=== PATIENT | male | born 1960 | race Caucasian/White ===

== ENCOUNTER 2018-04-26 07:05 | Inpatient (IN) | payer OTHER, SELFPAY ==
[2018-04-26] VITALS (22 sets, daily range): BP systolic 92–134; BP diastolic 64–94; PULSE 101–150; RESP 16–38; TEMP 36.6–39.7; O2SAT 91–99; BMI 25.1
--- NOTE | 2018-04-26 07:23 | CT_ITS ---
STUDY: CT ABDOMEN AND PELVIS WITH CONTRAST REASON FOR EXAM: Male, 58 years old. Pain, vomiting RADIATION DOSAGE (If Supplied By Facility): CTDIvol = ( 14.38 ) mGy, DLP = ( 1737.76 ) mGycm TECHNIQUE: Transaxial images were obtained from the dome of the diaphragm to the symphysis pubis without oral contrast. 100ML ml of Isovue 370 contrast was administered. Sagittal and coronal images were reconstructed. Individualized dose optimization techniques were used for this CT. COMPARISON: None. FINDINGS: The visualized lung bases are unremarkable. The visualized portions of the heart are within normal limits. Normal liver. Normal gallbladder and extrahepatic biliary system. There are curvilinear low attenuated peripheral bands within the spleen. Splenic injury cannot be excluded. No subcapsular or perisplenic collection. Normal pancreas. Normal bilateral adrenal glands. Normal right kidney. Subcentimeter probable cyst in the left kidney. Normal visualized stomach. Normal small intestine. Mild fecal retention of the colon. Mild colonic diverticulosis. There is mild mesenteric thickening adjacent to the mid ascending colon. The appendix is not visualized. Normal abdominal aorta. Duplicated inferior vena cava. Normal retroperitoneum. Normal urinary bladder. Normal abdominal wall. Degenerative vertebral changes. CT/Abdomen/Pelvis WITH Contrast IMPRESSION: Curvilinear bands of low attenuation within the spleen along the periphery. Splenic injury cannot be excluded. No subcapsular collection. Nonspecific mesenteric thickening adjacent to the mid ascending colon. Duplicated IVC. Electronically Signed: Hernando Jarvis DO at 9:56 EST Tel [phone], Service support ,
--- NOTE | 2018-04-26 07:23 | RAD_ITS ---
STUDY: X-RAY CHEST REASON FOR EXAM: Male, 58 years old. Tachycardia, hypoxia TECHNIQUE: Single frontal view COMPARISON: None. FINDINGS: The lungs are not fully expanded. Bibasilar atelectasis. Cardiomegaly. Normal mediastinum and bobby. Normal visualized pulmonary arteries. Normal visualized aortic arch and descending thoracic aorta. Mild degenerative changes of the visualized thoracic spine. Whole right rib fractures. There is no demonstrated abnormality of the visualized soft tissue structures of the upper abdomen. RAD/Chest 1 View IMPRESSION: Bibasilar atelectasis. Cardiomegaly. Electronically Signed: Hernando Jarvis DO at 8:22 EST Tel [phone], Service support ,
[2018-04-26] MEDS: Ondansetron 4 MG/2 ML Vial IV (07:41)
[2018-04-26] MEDS: 0.9% Normal Saline 1,000 ML 1000 ML IV (07:41)
[2018-04-26] MEDS: ChlorproMAZINE 50 MG/2 ML Ampul 25 MG IM (07:42)
[2018-04-26 07:48] LABS: Basophil# 0.09 X10^3/uL; Hematocrit 46.1 % (40-54); Hemoglobin 15.6 g/dl (13.0-16.5); Lymphocyte # 0.93 X10^3/ul (4.0); Mean Corp Hgb Conc 33.8 g/gl (32-36); Mean Corpuscular Hgb 31.5 pg (27.0-32.0); Mean Corpuscular Volume 93.1 fL (80-94); Mean Platelet Vol. 10.8 fl (6.2-12.0); Monocyte# 1.21 X10^3/uL; Neutrophil # 16.09 X10^3/uL (2.7-7.7); Platelet Count 145 K/mm3 (150-450); RBC Distribution Width CV 13.3 % (11.6-14.6); RBC Distribution Width SD 44.2 fl (35.1-43.9); Red Blood Count 4.95 M/mm3 (4.6-6.2); White Blood Count 18.5 K/mm3 (4.4-11.0)
[2018-04-26 07:50] LABS: Differential Indicated SCAN CRITERIA MET; POSITIVE COUNT NO; POSITIVE DIFFERENTIAL NO; POSITIVE MORPHOLOGY YES
[2018-04-26 07:58] LABS: ALB/GLOB Ratio 0.4 RATIO (0.9-2.4); AST(SGOT) 63 U/L (15-37); Alanine Aminotransfer ALT/SGPT 56 U/L (16-61); Albumin, Serum 2.3 g/dL (3.2-5.0); Alkaline Phosphatase 223 U/L (45-117); Anion Gap 11 (5-15); BUN 40 mg/dL (7-18); BUN/Creat Ratio 28.6 RATIO (10-20); Calcium,Total 8.7 mg/dL (8.5-10.1); Chloride 95 mmol/L (98-107); EST Glomerular Filtration Rate 56 mL/min (>60); Est Glom Filt Rate - Afr Amer 67 mL/min (>60); Estimated Creatinine Clearance 60.83 ml/min; Globulin 5.4 g/dL (2.2-4.2); Glucose 199 mg/dL (74-106); Lipase 340 U/L (73-393); Potassium 4.2 mmol/L (3.5-5.1); Protein, Total 7.7 g/dL (6.4-8.2); Sodium Level 132 mmol/L (136-145)
[2018-04-26 08:15] LABS: Lactic Acid 3.7 mmol/L (0.4-2.0)
[2018-04-26 08:17] LABS: Lymphocyte 4 % (19-41); Metamyelocyte 1 % (0-1); Monocyte 7 % (0-10); Neutrophil-Band 13 % (0-5); Neutrophil-Segmented 75 % (47-70); Total Cells Counted 100 (MANUAL DIFF)
[2018-04-26 08:18] LABS: Platelet Estimate ADEQUATE (ADEQ); Red Cell Morphology NORM C+C NORMAL (NORM C&C); Scan Smear per Review Criteria MANUAL DIFF; Toxic Granulation 1+
[2018-04-26 08:19] LABS: Absolute Lymphocyte Count 0.74 X10^3/ul (0.83-4.51); Absolute Neutrophil Count 16.3 X10^3/uL (2.0-7.7)
[2018-04-26 08:21] LABS: D-Dimer Quantitative (DVT/PE) 5.41 FEU/ug/m (0.27-0.49)
--- NOTE | 2018-04-26 08:21 | CT_ITS ---
STUDY: CTA CHEST REASON FOR EXAM: Male, 58 years old. Hypoxia, tachycardia RADIATION DOSAGE (If Supplied By Facility): CTDIvol = ( 14.38 ) mGy, DLP = ( 1737.76 ) mGycm TECHNIQUE: The examination was performed with the intravenous administration of 100ML ml of Isovue 370 contrast material. Post-processing of the angiographic images was performed, with multiplanar reformation and 3D reconstruction. Individualized dose optimization techniques were used for this CT. COMPARISON: None. FINDINGS: Normal enhancement of the main pulmonary artery and right and left pulmonary arteries. Normal enhancement of the bilateral peripheral pulmonary arteries. There is no demonstrated pulmonary embolism. Normal thoracic aorta and visualized great vessels. There is no demonstrated aortic dissection. Normal heart and pericardium. Normal mediastinum. Normal hilar regions. Normal visualized trachea and bronchi. The lungs are well expanded. Mild basilar atelectasis. Normal pleura. Normal chest wall structures. Degenerative vertebral changes. Normal visualized upper abdomen. CT/CTA Chest W/WO Contrast IMPRESSION: No demonstrated pulmonary embolism or arterial dissection. Basilar atelectasis. Electronically Signed: Hernando Jarvis DO at 10:09 EST Tel [phone], Service support ,
[2018-04-26 08:40] LABS: Magnesium 2.6 mg/dL (1.6-2.6); Phosphorus 3.2 mg/dL (2.5-4.9)
[2018-04-26] MEDS: 0.9% Normal Saline 1,000 ML IV.SOLN. 1000 ML IV (10:03)
--- NOTE | 2018-04-26 10:47 | NURSING ---
DR JUANITA FONG
--- NOTE | 2018-04-26 11:05 | ED.DCSUM_ITS ---
- ER Visit Summary Date of Service: 04/26/18 Chief Complaint: [Vomiting and hiccups] History of Present Illness: The patient is a 58 M presents the emergency department complaint of nausea vomiting for the last 4 days. Patient also had hiccups for about 4 days. Patient states he went to a chiropractor for some pain in his left buttock and leg and was diagnosed with sciatica about 5 days ago. Patient initially was started on Valium as well as narcotic pain medication. Patient subsequently also started on prednisone. Patient unable to stop hiccuping. He has not been able to eat or drink. He denies any significant abdominal pain. Patient denies any chest pain or shortness of breath. He denies recent travel or surgery. [] Physical Examination: [HEENT-PERRLA, EOMI. Cranial nerves II through XII grossly intact. TMs clear. No adenopathy. Dry mucous membranes. Cardiovascular-regular and tachycardic. No murmurs auscultated Lungs-clear to auscultation, chest wall stable without crepitus or subcu emphysema Abdomen-normoactive bowel sounds, soft. Patient has some mild epigastric tenderness on palpation. There is no rebound, rigidity, or perineal signs. Extremities-intact ?4, normal range of motion, normal pulses, atraumatic] Test Results: [On arrival patient minimally hypoxic on room air with O2 sat ranging from 89-92%. CBC with differential obtained showed a white count of 18.5, hemoglobin 15.6, hematocrit 46, platelets 145. Chemistries were unremarkable. BUN was 40 and creatinine 1.4. Total bilirubin was elevated 2.3, alk phos 2 23, ALT 56, AST 63, lipase 340. Lactate was elevated 3.7. D-dimer was elevated at 5.4. CTA of the chest obtained showed no PE or dissection just some atelectasis of the lung bases. Chest x-ray just showed atelectasis lung bases. 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 contrast showed a duplicated IVC. Patient had some mesenteric thickening along the ascending colon. Patient was noted to have some abnormal bands through the spleen and trauma cannot be ruled out however after discussing case with the radiologist he feels these abnormal findings of the spleen may be related to timing of contrast through the spleen given the patient's not had any history of trauma and there is no subcapsular hematoma or free fluid in the abdomen.] Emergency Department Course and Treatment: [And received 2 L of normal saline as well as Thorazine and Zofran. Patient continued to have nausea and hiccups. He was given 25 mg of Thorazine p.o.] Treatment Plan: [Admit for IV hydration and symptom control] Disposition: [Admit] Impression: [Intractable nausea vomiting Dehydration Hiccups-etiology uncertain] This note was generated with [employer] dictation software. It may contain incorrect words, spelling, and punctuation that were not noted in review of the chart prior to signing ED Disposition - Plan for ED Patient: Chief Complaint: Nausea/Vomiting Referrals: Chas Chamorro MD [Primary Care Provider] -
[2018-04-26] MEDS: ChlorproMAZINE 25 MG Tablet PO ×2 (11:23→15:09)
[2018-04-26] MEDS: 0.9% Normal Saline 1,000 ML 150 ML IV (11:23)
--- NOTE | 2018-04-26 11:27 | NURSING ---
DR COLE FOR DR FONG
--- NOTE | 2018-04-26 11:29 | EKG12_ITS ---
Test Reason : ADMISSION Blood Pressure : / mmHG Vent. Rate : 109 BPM Atrial Rate : 109 BPM P-R Int : 160 ms QRS Dur : 078 ms QT Int : 312 ms P-R-T Axes : 025 -15 044 degrees QTc Int : 420 ms Sinus tachycardia Moderate voltage criteria for LVH, may be normal variant Cannot rule out Septal infarct , age undetermined Abnormal ECG Confirmed by ERIKA HALE, NELY ([id number]), purchasing expeditor RODOLFO ARCINIEGA ([id number]) on 04/29/2018 1:39:31 PM Referred By: EARL Confirmed By:NELY JAMES MD
--- NOTE | 2018-04-26 11:32 | NURSING ---
NO OLD EKGS
[2018-04-26 11:38] LABS: Reflex Lactate? Y
--- NOTE | 2018-04-26 11:45 | PCM.HP.STD ---
Problem List (1) Elevated LFTs Status: Acute (2) Hyperglycemia Status: Acute (3) Acute kidney injury Status: Acute (4) Intractable nausea and vomiting Status: Acute History of Present Illness Date of Admission: 04/26/18 Chief Complaint: Vomiting and hiccups. The patient is a 58 year old M with no significant past medical history presented to the emergency room because of nausea, vomiting and hiccups. Around 5 days ago, he saw a chiropractor for left buttock and left leg pain, was diagnosed with sciatica and he was given prescriptions for Valium and [place]. He started taking those medications on the same day and since then, he has been having persistent hiccups whenever he takes the pain pills, associated with occasional nausea and vomiting as well as poor appetite, weakness and muscle aches and pain and without aggravating or relieving factors. He was not able to keep any liquids or food down to his stomach. He denied fever or chills. He denied chest pain or shortness of breath. He denied abdominal pain or urinary symptoms. In the emergency department, patient was tachycardic and hypoxic, blood pressure was stable. Routine blood work was remarkable for leukocytosis with neutrophilia, sodium of 132, BUN of 40 and creatinine of 1.40. His blood glucose was 199 without history of diabetes. Lactic acid was 3.7. LFT revealed total bilirubin of 2.3, alk phos of 223, AST of 63 and ALT of 56 which is normal. His lipase was normal. D-dimer was elevated at 5.41. His EKG revealed normal sinus tachycardia without evidence of acute ischemic changes. CTA chest showed no PE or dissection, no pneumonia. Chest x-ray showed no acute findings. CT scan abdomen and pelvis with contrast revealed normal liver, normal gallbladder and extrahepatic. System, normal bilateral adrenals, normal kidneys, normal small intestine, normal stomach and colon, normal urinary bladder, revealed low attenuated peripheral bands within the spleen and reported as splenic injury cannot be excluded. ED physician spoke with the radiologist and he stated no evidence of splenic injury and those bands could be due to the timing of the IV contrast. He is being admitted for intractable nausea and vomiting probably secondary to pain medication side effects, complicated by acute kidney injury and hypovolemic hyponatremia as well as lactic acidosis, also found to have hyperglycemia, elevated LFT and elevated d-dimer. Past Medical History Allergies No Known Allergies Allergy (Verified 04/26/18 07:09) Home Medications: Ambulatory Orders Medication Instructions Recorded NK 04/26/18 Surgical History: no surgical history Psychiatric History: No pertinent psych hx Lives: Spouse/ Significant Other Smoking Status: Never smoker Alcohol: Occasional Drugs: None - *Family History Maternal History Items: No pertinent history Paternal History Items: Hypertension Review of Systems Constitutional: Reports: Anorexia, Weakness, Fatigue. Denies: Chills, Fever Eyes: Denies: Blurred vision, Double vision, Drainage, Redness HEENT: Denies: Difficulty Hearing, Ear Pain, Eye Pain, Nasal Congestion, Sore Throat Cardiovascular: Denies: Chest Pain, Chest Pressure, Chest Tightness, Heaviness, Light Headedness, Palpitations, Syncope Respiratory: Denies: Cough, Pleuritic Pain, Shortness of Breath, Sputum production, Wheezing Gastrointestinal: Reports: Nausea, Vomiting, - - Hiccups.. Denies: Abdominal Pain, Constipation, Diarrhea Genitourinary: Denies: Dysuria, Frequency, Hematuria Musculoskeletal: Reports: Back Pain. Denies: Arm Pain, Foot Pain Skin: Denies: Dryness, Rash Neurological: Denies: Balance problems, Double vision, Change in Speech, Slurred speech, Confusion, Headaches, Incoordination, Numbness Psychiatric: Denies: Anxiety, Depression Endocrine: Denies: Change in Body Habitus, Polydipsia VTE Information - Inpt Only VTE Present on Admission: No VTE Mechan Device Prophylaxis: None VTE Pharm Prophylaxis ordered?: Yes Patient Problems: Active and Suspected Problems Elevated LFTs (Acute) Hyperglycemia (Acute) Acute kidney injury (Acute) Intractable nausea and vomiting (Acute) - Physical Exam General: Alert, Oriented x3, Cooperative, No apparent distress HEENT: Atraumatic, PERRLA, EOMI, Normocephalic Oral: No Gingival or Mucosal Lesions/ Ulcerations, Dry Mucosa Neck: Supple, No JVD, Negative Carotid Bruits, Trachea Midline, Thyroid Normal Size and Texture Lungs: Clear to auscultation, Normal air movement, No rhonchi, No wheeze, No rales Cardiovascular: Regular rate, Regular Rhythm, Normal S1, Normal S2, PMI Normal, Tachycardic Abdomen: Bowel Sounds Present, Soft, Non Tender, Non-Distended, No Hepato-splenomegaly Extremities: No clubbing, No cyanosis, No edema Skin: No rashes, No breakdown Lymphatic: No Cervical, Supraclavicular, or Inguinal Adenopathy Neurological: Cranial nerves II-XII grossly intact, Motor Exam 5/5 strength throughout Psych/Mental Status: Normal Affect, Appropriate, Alert and oriented to time, place, person, mood and affect Vital Signs Temp Pulse Resp BP Pulse Ox 98.7 F 111 H 18 106/79 94 04/26/18 07:06 04/26/18 10:04 04/26/18 10:04 04/26/18 10:04 04/26/18 10:04 Oxygen Flow Rate (L/min) 3 Oxygen Delivery Method Nasal Cannula Weight: 175 lb Body Mass Index (BMI) 25.1 Laboratory Tests Past 24 Hrs 04/26/18 04/26/18 04/26/18 07:15 07:15 07:15 WBC 18.5 H RBC 4.95 Hgb 15.6 Hct 46.1 MCV 93.1 MCH 31.5 MCHC 33.8 RDW 13.3 RDW Differential 44.2 H Plt Count 145 L MPV 10.8 Immature Gran % (Auto) SUPERVISORY INVESTIGATIVE SPECIALIST Neut % (Auto) SUPERVISORY INVESTIGATIVE SPECIALIST Lymph % (Auto) SUPERVISORY INVESTIGATIVE SPECIALIST [place] % (Auto) SUPERVISORY INVESTIGATIVE SPECIALIST Eos % (Auto) SUPERVISORY INVESTIGATIVE SPECIALIST Baso % (Auto) SUPERVISORY INVESTIGATIVE SPECIALIST Absolute Neuts (auto) 16.3 H Absolute Lymphs (auto) 0.74 L Total Counted 100 Neutrophils % (Manual) 75 H Band Neutrophils % 13 H Lymphocytes % (Manual) 4 L Monocytes % (Manual) 7 Metamyelocytes % 1 Diff Path Review May foll Toxic Granulation 1+ Platelet Estimate ADEQUATE RBC Morphology NORM C+C D-Dimer Quant (PE/DVT) Sodium 132 L Potassium 4.2 Chloride 95 L Carbon Dioxide 26.0 Anion Gap 11 BUN 40 H Creatinine 1.40 H Estim Creat Clear Calc 60.83 Est GFR (MDRD) Af Amer 67 Est GFR (MDRD) Non-Af 56 L BUN/Creatinine Ratio 28.6 H Glucose 199 H Lactic Acid 3.7 H Calcium 8.7 Phosphorus Magnesium Total Bilirubin 2.30 H AST 63 H ALT 56 Alkaline Phosphatase 223 H Total Protein 7.7 Albumin 2.3 L Globulin 5.4 H Albumin/Globulin Ratio 0.4 L Lipase 340 04/26/18 04/26/18 04/26/18 07:15 07:15 11:10 WBC RBC Hgb Hct MCV MCH MCHC RDW RDW Differential Plt Count MPV Immature Gran % (Auto) Neut % (Auto) Lymph % (Auto) [place] % (Auto) Eos % (Auto) Baso % (Auto) Absolute Neuts (auto) Absolute Lymphs (auto) Total Counted Neutrophils % (Manual) Band Neutrophils % Lymphocytes % (Manual) Monocytes % (Manual) Metamyelocytes % Diff Path Review Toxic Granulation Platelet Estimate RBC Morphology D-Dimer Quant (PE/DVT) 5.41 H* Sodium Potassium Chloride Carbon Dioxide Anion Gap BUN Creatinine Estim Creat Clear Calc Est GFR (MDRD) Af Amer Est GFR (MDRD) Non-Af BUN/Creatinine Ratio Glucose Lactic Acid Pending Calcium Phosphorus 3.2 Magnesium 2.6 Total Bilirubin AST ALT Alkaline Phosphatase Total Protein Albumin Globulin Albumin/Globulin Ratio Lipase Clinical Impression(s) from Imaging Studies Abdomen/Pelvis CT 04/26/18 07:23 IMPRESSION: Curvilinear bands of low attenuation within the spleen along the periphery. Splenic injury cannot be excluded. No subcapsular collection. Nonspecific mesenteric thickening adjacent to the mid ascending colon. Duplicated IVC. Electronically Signed: Hernando Jarvis DO at 9:56 EST Tel [phone], Service support , Chest X-Ray 04/26/18 07:23 IMPRESSION: Bibasilar atelectasis. Cardiomegaly. Electronically Signed: Hernando Jarvis DO at 8:22 EST Tel [phone], Service support , Chest CTA 04/26/18 08:21 IMPRESSION: No demonstrated pulmonary embolism or arterial dissection. Basilar atelectasis. Electronically Signed: Hernando Jarvis DO at 10:09 EST Tel [phone], Service support , Assessment/Plan All Active Problems Elevated LFTs (Acute) Hyperglycemia (Acute) Acute kidney injury (Acute) Intractable nausea and vomiting (Acute) This is a 58-year-old male patient presented to the ED because of hiccups, nausea and vomiting in context of taking [place] and Valium for sciatica, found to have acute kidney injury with hypovolemic hyponatremia, lactic acidosis, hyperglycemia without history of diabetes and elevated d-dimer as well as elevated LFT. #1 intractable hiccups/nausea/vomiting: Probably due to side effects of narcotics. CT scan abdomen and pelvis with contrast reviewed. No acute intra-abdominal findings. Patient is tachycardic and hypoxic, blood pressure stable. His LFT revealed bilirubin of 2.3, alk phos of 223. Lipase was normal. Patient reported muscle cramps and pain. Plan: Admit to [facility] floor, keep on clear liquids, advance diet as tolerated, IV fluids, input output chart, IV Protonix, IV Zofran and Phenergan as needed, will check creatine phosphokinase, repeat CBC and CMP tomorrow morning, start oral Thorazine as needed for hiccups. #2 acute kidney injury/hypovolemic hyponatremia: Secondary to above, no known past history of kidney disease. Baseline kidney function is normal. Admission creatinine is 1.40, BUN is 40, sodium is 132. Plan: IV fluids, input output chart, repeat CMP tomorrow morning. #3 lactic acidosis/leukocytosis: Lactic acid is 3.7. This is likely because of severe dehydration. Leukocytosis reactive as well. At this time, I doubt acute infections. Chest x-ray and CTA chest showed no infiltrate. Patient denied any urinary symptoms. Expect lactic acid and white blood cell count to normalize with hydration. #4 hyperglycemia: Without prior history of diabetes. Glucose is 199. Plan: We will check hemoglobin A1c, Accu-Cheks every 6 hours. #5 elevated LFT: CT scan abdomen revealed normal liver and gallbladder, normal extrahepatic bili system. Patient denied any right upper quadrant abdominal pain, negative Piper sign. Plan: Ultrasound liver and gallbladder, repeat LFT tomorrow morning. #6 elevated d-dimer: With negative CTA chest for PE or dissection. Patient is tachycardic and was hypoxic. Acute PE ruled out. #7 left leg/buttock sciatica: We will use extra strength Tylenol, avoid narcotics. #8 DVT prophylaxis: Subcu Lovenox. This note was generated with [employer] dictation software. It may contain incorrect words, spelling, and punctuation that were not noted in checking the note before signing. Code Visit Inpatient E&M: 18077 Init Hosp L3
--- NOTE | 2018-04-26 11:46 | NURSING ---
MED SURG INTRACTABLE N,V, ACUTE KIDNEY INJURY, HYPERGLYCEMIA, ELEVATED AN COLE
[2018-04-26 11:49] LABS: Lactic Acid 1.9 mmol/L (0.4-2.0)
--- NOTE | 2018-04-26 11:52 | HP.PCM_ITS ---
Problem List (1) Elevated LFTs Status: Acute (2) Hyperglycemia Status: Acute (3) Acute kidney injury Status: Acute (4) Intractable nausea and vomiting Status: Acute History of Present Illness Date of Admission: 04/26/18 Chief Complaint: Vomiting and hiccups. The patient is a 58 year old M with no significant past medical history presented to the emergency room because of nausea, vomiting and hiccups. Around 5 days ago, he saw a chiropractor for left buttock and left leg pain, was diagnosed with sciatica and he was given prescriptions for Valium and [place]. He started taking those medications on the same day and since then, he has been having persistent hiccups whenever he takes the pain pills, associated with occasional nausea and vomiting as well as poor appetite, weakness and muscle aches and pain and without aggravating or relieving factors. He was not able to keep any liquids or food down to his stomach. He denied fever or chills. He denied chest pain or shortness of breath. He denied abdominal pain or urinary symptoms. In the emergency department, patient was tachycardic and hypoxic, blood pressure was stable. Routine blood work was remarkable for leukocytosis with neutrophilia, sodium of 132, BUN of 40 and creatinine of 1.40. His blood glucose was 199 without history of diabetes. Lactic acid was 3.7. LFT revealed total bilirubin of 2.3, alk phos of 223, AST of 63 and ALT of 56 which is normal. His lipase was normal. D-dimer was elevated at 5.41. His EKG revealed normal sinus tachycardia without evidence of acute ischemic changes. CTA chest showed no PE or dissection, no pneumonia. Chest x-ray showed no acute findings. CT scan abdomen and pelvis with contrast revealed normal liver, normal gallbladder and extrahepatic. System, normal bilateral adrenals, normal kidneys, normal small intestine, normal stomach and colon, normal urinary bladder, revealed low attenuated peripheral bands within the spleen and reported as splenic injury cannot be excluded. ED physician spoke with the radiologist and he stated no evidence of splenic injury and those bands could be due to the timing of the IV contrast. He is being admitted for intractable nausea and vomiting probably secondary to pain medication side effects, complicated by acute kidney injury and hypovolemic hyponatremia as well as lactic acidosis, also found to have hyperglycemia, elevated LFT and elevated d-dimer. Past Medical History Allergies No Known Allergies Allergy (Verified 04/26/18 07:09) Home Medications: Ambulatory Orders Medication Instructions Recorded NK 04/26/18 Surgical History: no surgical history Psychiatric History: No pertinent psych hx Lives: Spouse/ Significant Other Smoking Status: Never smoker Alcohol: Occasional Drugs: None - *Family History Maternal History Items: No pertinent history Paternal History Items: Hypertension Review of Systems Constitutional: Reports: Anorexia, Weakness, Fatigue. Denies: Chills, Fever Eyes: Denies: Blurred vision, Double vision, Drainage, Redness HEENT: Denies: Difficulty Hearing, Ear Pain, Eye Pain, Nasal Congestion, Sore Throat Cardiovascular: Denies: Chest Pain, Chest Pressure, Chest Tightness, Heaviness, Light Headedness, Palpitations, Syncope Respiratory: Denies: Cough, Pleuritic Pain, Shortness of Breath, Sputum production, Wheezing Gastrointestinal: Reports: Nausea, Vomiting, - - Hiccups.. Denies: Abdominal Pain, Constipation, Diarrhea Genitourinary: Denies: Dysuria, Frequency, Hematuria Musculoskeletal: Reports: Back Pain. Denies: Arm Pain, Foot Pain Skin: Denies: Dryness, Rash Neurological: Denies: Balance problems, Double vision, Change in Speech, Slurred speech, Confusion, Headaches, Incoordination, Numbness Psychiatric: Denies: Anxiety, Depression Endocrine: Denies: Change in Body Habitus, Polydipsia VTE Information - Inpt Only VTE Present on Admission: No VTE Mechan Device Prophylaxis: None VTE Pharm Prophylaxis ordered?: Yes Patient Problems: Active and Suspected Problems Elevated LFTs (Acute) Hyperglycemia (Acute) Acute kidney injury (Acute) Intractable nausea and vomiting (Acute) - Physical Exam General: Alert, Oriented x3, Cooperative, No apparent distress HEENT: Atraumatic, PERRLA, EOMI, Normocephalic Oral: No Gingival or Mucosal Lesions/ Ulcerations, Dry Mucosa Neck: Supple, No JVD, Negative Carotid Bruits, Trachea Midline, Thyroid Normal Size and Texture Lungs: Clear to auscultation, Normal air movement, No rhonchi, No wheeze, No rales Cardiovascular: Regular rate, Regular Rhythm, Normal S1, Normal S2, PMI Normal, Tachycardic Abdomen: Bowel Sounds Present, Soft, Non Tender, Non-Distended, No Hepato- splenomegaly Extremities: No clubbing, No cyanosis, No edema Skin: No rashes, No breakdown Lymphatic: No Cervical, Supraclavicular, or Inguinal Adenopathy Neurological: Cranial nerves II-XII grossly intact, Motor Exam 5/5 strength throughout Psych/Mental Status: Normal Affect, Appropriate, Alert and oriented to time, place, person, mood and affect Vital Signs Temp Pulse Resp BP Pulse Ox 98.7 F 111 H 18 106/79 94 04/26/18 07:06 04/26/18 10:04 04/26/18 10:04 04/26/18 10:04 04/26/18 10:04 Oxygen Flow Rate (L/min) 3 Oxygen Delivery Method Nasal Cannula Weight: 175 lb Body Mass Index (BMI) 25.1 Laboratory Tests Past 24 Hrs 04/26/18 04/26/18 04/26/18 07:15 07:15 07:15 WBC 18.5 H RBC 4.95 Hgb 15.6 Hct 46.1 MCV 93.1 MCH 31.5 MCHC 33.8 RDW 13.3 RDW Differential 44.2 H Plt Count 145 L MPV 10.8 Immature Gran % (Auto) ENVIRONMENTAL SERVICES FLOOR TECH Neut % (Auto) ENVIRONMENTAL SERVICES FLOOR TECH Lymph % (Auto) ENVIRONMENTAL SERVICES FLOOR TECH [place] % (Auto) ENVIRONMENTAL SERVICES FLOOR TECH Eos % (Auto) ENVIRONMENTAL SERVICES FLOOR TECH Baso % (Auto) ENVIRONMENTAL SERVICES FLOOR TECH Absolute Neuts (auto) 16.3 H Absolute Lymphs (auto) 0.74 L Total Counted 100 Neutrophils % (Manual) 75 H Band Neutrophils % 13 H Lymphocytes % (Manual) 4 L Monocytes % (Manual) 7 Metamyelocytes % 1 [address] Path Review May foll Toxic Granulation 1+ Platelet Estimate ADEQUATE RBC Morphology NORM C+C D-Dimer Quant (PE/DVT) Sodium 132 L Potassium 4.2 Chloride 95 L Carbon Dioxide 26.0 Anion Gap 11 BUN 40 H Creatinine 1.40 H Estim Creat Clear Calc 60.83 Est GFR (MDRD) Af Amer 67 Est GFR (MDRD) Non-Af 56 L BUN/Creatinine Ratio 28.6 H Glucose 199 H Lactic Acid 3.7 H Calcium 8.7 Phosphorus Magnesium Total Bilirubin 2.30 H AST 63 H ALT 56 Alkaline Phosphatase 223 H Total Protein 7.7 Albumin 2.3 L Globulin 5.4 H Albumin/Globulin Ratio 0.4 L Lipase 340 04/26/18 04/26/18 04/26/18 07:15 07:15 11:10 WBC RBC Hgb Hct MCV MCH MCHC RDW RDW Differential Plt Count MPV Immature Gran % (Auto) Neut % (Auto) Lymph % (Auto) [place] % (Auto) Eos % (Auto) Baso % (Auto) Absolute Neuts (auto) Absolute Lymphs (auto) Total Counted Neutrophils % (Manual) Band Neutrophils % Lymphocytes % (Manual) Monocytes % (Manual) Metamyelocytes % Diff Path Review Toxic Granulation Platelet Estimate RBC Morphology D-Dimer Quant (PE/DVT) 5.41 H* Sodium Potassium Chloride Carbon Dioxide Anion Gap BUN Creatinine Estim Creat Clear Calc Est GFR (MDRD) Af Amer Est GFR (MDRD) Non-Af BUN/Creatinine Ratio Glucose Lactic Acid Pending Calcium Phosphorus 3.2 Magnesium 2.6 Total Bilirubin AST ALT Alkaline Phosphatase Total Protein Albumin Globulin Albumin/Globulin Ratio Lipase Clinical Impression(s) from Imaging Studies Abdomen/Pelvis CT 04/26/18 07:23 IMPRESSION: Curvilinear bands of low attenuation within the spleen along the periphery. Splenic injury cannot be excluded. No subcapsular collection. Nonspecific mesenteric thickening adjacent to the mid ascending colon. Duplicated IVC. Electronically Signed: Hernando Jarvis DO at 9:56 EST Tel [phone], Service support , Chest X-Ray 04/26/18 07:23 IMPRESSION: Bibasilar atelectasis. Cardiomegaly. Electronically Signed: Hernando Jarvis DO at 8:22 EST Tel [phone], Service support , Chest CTA 04/26/18 08:21 IMPRESSION: No demonstrated pulmonary embolism or arterial dissection. Basilar atelectasis. Electronically Signed: Hernando Jarvis DO at 10:09 EST Tel [phone], Service support , Assessment/Plan All Active Problems Elevated LFTs (Acute) Hyperglycemia (Acute) Acute kidney injury (Acute) Intractable nausea and vomiting (Acute) This is a 58-year-old male patient presented to the ED because of hiccups, nausea and vomiting in context of taking [place] and Valium for sciatica, found to have acute kidney injury with hypovolemic hyponatremia, lactic acidosis, hyperglycemia without history of diabetes and elevated d-dimer as well as elevated LFT. #1 intractable hiccups/nausea/vomiting: Probably due to side effects of narcotics. CT scan abdomen and pelvis with contrast reviewed. No acute intra- abdominal findings. Patient is tachycardic and hypoxic, blood pressure stable. His LFT revealed bilirubin of 2.3, alk phos of 223. Lipase was normal. Patient reported muscle cramps and pain. Plan: Admit to [facility] floor, keep on clear liquids, advance diet as tolerated, IV fluids, input output chart, IV Protonix, IV Zofran and Phenergan as needed, will check creatine phosphokinase, repeat CBC and CMP tomorrow morning, start oral Thorazine as needed for hiccups. #2 acute kidney injury/hypovolemic hyponatremia: Secondary to above, no known past history of kidney disease. Baseline kidney function is normal. Admission creatinine is 1.40, BUN is 40, sodium is 132. Plan: IV fluids, input output chart, repeat CMP tomorrow morning. #3 lactic acidosis/leukocytosis: Lactic acid is 3.7. This is likely because of severe dehydration. Leukocytosis reactive as well. At this time, I doubt acute infections. Chest x-ray and CTA chest showed no infiltrate. Patient denied any urinary symptoms. Expect lactic acid and white blood cell count to normalize with hydration. #4 hyperglycemia: Without prior history of diabetes. Glucose is 199. Plan: We will check hemoglobin A1c, Accu-Cheks every 6 hours. #5 elevated LFT: CT scan abdomen revealed normal liver and gallbladder, normal extrahepatic bili system. Patient denied any right upper quadrant abdominal pain, negative Piper sign. Plan: Ultrasound liver and gallbladder, repeat LFT tomorrow morning. #6 elevated d-dimer: With negative CTA chest for PE or dissection. Patient is tachycardic and was hypoxic. Acute PE ruled out. #7 left leg/buttock sciatica: We will use extra strength Tylenol, avoid narcotics. #8 DVT prophylaxis: Subcu Lovenox. This note was generated with [employer] dictation software. It may contain incorrect words, spelling, and punctuation that were not noted in checking the note before signing. Code Visit Inpatient E&M: 78987 Init Hosp L3
[2018-04-26 12:43] LABS: Mucous, Urine 0 SEEN /hpf (<or=2+); White Blood Cells 0 SEEN /hpf (0-5)
--- NOTE | 2018-04-26 12:56 | US_ITS ---
STUDY: ABDOMINAL ULTRASOUND - RIGHT UPPER QUADRANT REASON FOR VISIT: Male, 58 years old. Elevated liver function tests. TECHNIQUE: Ultrasound evaluation of the right upper quadrant was performed with real-time and static rodriguez-scale imaging. TECHNICAL QUALITY: Adequate. COMPARISON: None. FINDINGS: Liver: The liver is mildly enlarged and measures 18.0 cm. There is normal echogenicity of the liver. The bile ducts are within normal limits. There is hepatic color flow. The direction of portal flow is hepatopetal. There is no demonstrated mass lesion. Gallbladder: There is a contracted gallbladder. The gallbladder wall measures 4.0 mm. There is a negative sonographic Piper's sign. There is no pericholecystic fluid. There are no gallstones. Common Bile Duct (C.B.D.): The common bile duct measures 3.0 mm. Pancreas: Normal size of the head, body and tail of the pancreas. There is normal echogenicity of the pancreas. There is no demonstrated pancreatic mass or cyst. Right Kidney: Normal size of the right kidney. The right kidney measures 11.7 cm x 5.1 cm x 4.9 cm. Normal renal cortex. The right cortex measures 2.1 cm. There is no demonstrated renal mass or cyst. There is no right hydronephrosis. US/Gallbladder IMPRESSION: Mild degree of hepatomegaly. Contracted gallbladder with slightly thickened wall. Electronically Signed: Hilton Parikh MD at 14:13 EST Tel [phone], Service support ,
[2018-04-26 13:06] LABS: Color, Urine Yellow (Yellow); Glucose, Dipstick Normal (Normal); Ketone-Dipstick Negative (Negative); Leukocyte Esterase-Dipstick 25 /ul (Negative); Nitrite-Dipstick Negative (Negative); Occult Blood-Urine 250 /ul (Negative); Protein-Dipstick 100 mg/dl (Negative); Specific Gravity, Urine 1.005 (1.002-1.030); Urine Bilirubin Dipstick Negative (Negative); Urine Clarity Sl. Cloudy (Clear); Urine Urobilinogen 1 mg/dl (Normal)
[2018-04-26 13:19] LABS: Bacteria 1+ /hpf (None Seen); Red Blood Cells-Urine 0-5 SEEN /hpf (0-5); Squamous Epithelial Cells - UA 0-5 SEEN /hpf (0-5)
[2018-04-26] MEDS: Acetaminophen 500 MG Tablet 1000 MG PO (13:37)
[2018-04-26 13:52] LABS: CPK Total, Creatine Kinase 314 U/L (39-308)
[2018-04-26 13:54] LABS: Hemoglobin A1c 5.6 % (4.2-6.3)
[2018-04-26 14:36] LABS: Bedside Glucose 149 mg/dL (70-110)
[2018-04-26] MEDS: Heparin Injection (Vial) 5,000 UNIT/ML VIAL 5000 UNIT SC ×2 (15:09→22:29)
[2018-04-26] MEDS: 0.9% Normal Saline 1,000 ML 125 ML IV (15:10)
--- NOTE | 2018-04-26 15:24 | NURSING ---
NS 500 mL bolus complete. Maint IVF restarted
[2018-04-26] MEDS: 0.9% Normal Saline 1,000 ML 999 ML IV (15:38)
--- NOTE | 2018-04-26 15:38 | NURSING ---
1 liter NS bolus started at this time. Pt transferred to ICU via bed.
--- NOTE | 2018-04-26 16:07 | NURSING ---
Pt transferred to ICU per Dr Lewis after critical troponin of 1.68. Pt's at the bedside. Report given to Yesi.
--- NOTE | 2018-04-26 16:25 | EKG12_ITS ---
Test Reason : ELEVATED TROPONINS Blood Pressure : / mmHG Vent. Rate : 112 BPM Atrial Rate : 112 BPM P-R Int : 164 ms QRS Dur : 080 ms QT Int : 324 ms P-R-T Axes : 029 -07 069 degrees QTc Int : 442 ms Sinus tachycardia Nonspecific T wave abnormality Abnormal ECG When compared with ECG of 26-APR-2018 11:37, MANUAL COMPARISON REQUIRED, DATA IS UNCONFIRMED Confirmed by ERIKA HALE, NELY ([id number]), associate entertainment editor RODOLFO ARCINIEGA ([id number]) on 04/30/2018 4:14:21 PM Referred By: ERIKA Confirmed By:NELY JAMES MD
[2018-04-26 17:00] LABS: International Normalized Ratio 1.2; Prothrombin Time (Protime)PT. 15.6 SECONDS (11.7-14.9)
--- NOTE | 2018-04-26 17:05 | ECHOD_ITS ---
Reason For Study: S/P KS Procedure This was a 2D Doppler, Color Flow transthoracic echocardiogram. Exam performed portable in ICU/CCU. Left Ventricle Normal LV size. The estimated ejection fraction is 45 %. No regional wall motion abnormalities noted. Right Ventricle Normal RV size. Normal systolic function. Atria Normal left atrium. Normal right atrium. Mitral Valve Bileaflet diffuse mitral valve thickening. 0.9 by 0.7 cm mobile lesion consitent with mitral valve endocarditis. Mild-Moderate (1-2+) eccentric mitral valve insufficiency. Tricuspid Valve Normal tricuspid valve. Mild (1+) tricuspid valve insufficiency. Pulmonary artery systolic pressure is 30 mmHg. Aortic Valve Normal aortic valve. Trisinus/trileaflet aortic valve. Pulmonic Valve Normal pulmonic valve. Great Vessels Normal aortic root. The pulmonary artery is normal size. Normal inferior vena cava. Pericardium/Pleural No pericardial effusion. MMode/2D Measurements & Calculations LVIDd: 4.1 cm IVSd: 1.0 cm Ao root diam: 3.9 cm LVIDs: 3.7 cm LVPWd: 0.90 cm RVDd: 4.6 cm FS: 11.9 % LAV(MOD-bp): 55.7 ml LA A4 area: 16.5 cm2 LA dimension(2D): 4.1 cm LAV(MOD-bp) Indexed: 28.5 ml/m2 LAV(MOD-sp2): 62.0 ml LAV(MOD-sp4): 43.7 ml RA A4 area: 12.2 cm2 Doppler Measurements & Calculations MV E max magnus: 143.2 cm/sec Lat Peak E' Magnus: 10.6 cm/sec Med Peak E' Magnus: 13.9 cm/sec E/E' lat: 13.5 E/E' med: 10.3 Ao V2 max: 104.3 cm/sec LV V1 max: 90.2 cm/sec TR max magnus: 248.5 cm/sec Ao max P.4 mmHg LV V1 max P.3 mmHg TR max P.0 mmHg Interpretation Summary Normal LV size. The estimated ejection fraction is 45 %. No regional wall motion abnormalities noted. Bileaflet diffuse mitral valve thickening. 0.9 by 0.7 cm mobile lesion consitent with mitral valve endocarditis Mild-Moderate (1-2+) eccentric mitral valve insufficiency. Mild (1+) tricuspid valve insufficiency. Ordering Physician: Brant Lewis Referring Physician: Chas Chamorro Performed By: Karli Day, ROSA, RVT
[2018-04-26] MEDS: Piperacil/Tazobactam 3.375 GM/50 ML ML IV (17:13)
--- NOTE | 2018-04-26 17:18 | PCM.CONS.C ---
Reason for Consult Date of Consultation: 04/26/18 Reason for Consultation: Abnormal cardiac enzymes. History of Present Illness: The patient is a 58 year old M with no significant past medical history presented to the emergency room because of nausea, vomiting and hiccups. Around 5 days ago, he saw a chiropractor for left buttock and left leg pain, was diagnosed with sciatica and he was given prescriptions for Valium and [employer]. He started taking those medications on the same day and since then, he has been having persistent hiccups whenever he takes the pain pills, associated with occasional nausea and vomiting as well as poor appetite, weakness and muscle aches and pain and without aggravating or relieving factors. He was not able to keep any liquids or food down to his stomach. He denied fever or chills. He denied chest pain or shortness of breath. He denied abdominal pain or urinary symptoms. In the emergency department, patient was tachycardic and hypoxic, blood pressure was stable. Routine blood work was remarkable for leukocytosis with neutrophilia, sodium of 132, BUN of 40 and creatinine of 1.40. His blood glucose was 199 without history of diabetes. Lactic acid was 3.7. LFT revealed total bilirubin of 2.3, alk phos of 223, AST of 63 and ALT of 56 which is normal. His lipase was normal. D-dimer was elevated at 5.41. His EKG revealed normal sinus tachycardia without evidence of acute ischemic changes. CTA chest showed no PE or dissection, no pneumonia. Chest x-ray showed no acute findings. CT scan abdomen and pelvis with contrast revealed normal liver, normal gallbladder and extrahepatic. System, normal bilateral adrenals, normal kidneys, normal small intestine, normal stomach and colon, normal urinary bladder, revealed low attenuated peripheral bands within the spleen and reported as splenic injury cannot be excluded. ED physician spoke with the radiologist and he stated no evidence of splenic injury and those bands could be due to the timing of the IV contrast. He is being admitted for intractable nausea and vomiting probably secondary to pain medication side effects, complicated by acute kidney injury and hypovolemic hyponatremia as well as lactic acidosis, also found to have hyperglycemia, elevated LFT and elevated d-dimer. He specifically denies any chest pain or paroxysmal nocturnal dyspnea or previous cardiac problems. Past Medical History Allergies/Adverse Reactions: Allergies No Known Allergies Allergy (Verified 04/26/18 07:09) Home Medications: Ambulatory Orders Medication Instructions Recorded Diazepam 2 mg PO QHS 04/26/18 Hydrocodone/Acetaminophen 1 - 2 tab PO Q6H PRN PRN 04/26/18 [Hydrocodone-Acetamin 5-325 mg] Prednisone 1 tab PO BID 04/26/18 Surgical History: no surgical history Psychiatric History: No pertinent psych hx - *Family History Maternal History Items: No pertinent history Paternal History Items: Hypertension Lives: Spouse/ Significant Other Smoking Status: Never smoker Alcohol: Occasional Drugs: None Review of Systems - Review of Systems General: Reports: Fever, Fatigue. Denies: Night Sweats HEENT: Denies: Vision Change Cardiovascular: Denies: Chest Discomfort, Shortness of Breath, Orthopnea, PND, Peripheral Edema, Palpitations, Lightheadedness, Dizziness, Near Syncope, Syncope Respiratory: Denies: Cough, Sputum Production, Hemoptysis Gastrointestinal: Reports: Epigastric Discomfort, Nausea, Emesis. Denies: Indigestion, Hematemesis, Hematochezia, Melena Genitourinary: Denies: Dysuria, Hematuria Skin: Denies: Rash Neurological: Denies: Dizziness Psychiatric: Denies: Anxiety Endocrine: Denies: Unexplained Weight Loss Hematologic/ Lymphatic: Denies: Anemia Subjectve: Pleasant gentleman lying in bed looks unwell Objective: Vital Signs Temp Pulse Resp BP Pulse Ox 97.9 F 113 H 18 103/64 96 04/26/18 15:28 04/26/18 15:28 04/26/18 15:28 04/26/18 15:28 04/26/18 15:28 Oxygen Flow Rate (L/min) 4 Oxygen Delivery Method Nasal Cannula Weight: 175 lb Body Mass Index (BMI) 25.1 General: Awake, Alert, Oriented x 3 HEENT: PERRL, EOMI, Sclera Non Icteric Neck: Supple, Good ROM, No Lymph Node Enlargement Lungs: Clear to auscultation Cardiovascular: Regular Rhythm, Normal S1, Normal S2, No Murmurs, No Rubs, No Gallops Vascular: No Carotid Bruits, Normal Femoral Pulses, Normal Radial Pulses, Normal Dorsalis Pedal Pulse, Normal Posterior Tibial Pulses Abdomen: Bowel Sounds Present, Soft, Non Tender, No HSM, No Organomegaly Extremities: No Cyanosis, No Clubbing, No edema Musculoskeletal: No Erythema Skin: No Rashes Lymphatic: No Lymph Node Enlargement Neurological: No Focal Motor or Sensory Deficit Psych/Mental Status: Appropriate 04/26/18 07:15: WBC 18.5 H, RBC 4.95, Hgb 15.6, Hct 46.1, MCV 93.1, MCH 31.5, MCHC 33.8, RDW 13.3, RDW Differential 44.2 H, Plt Count 145 L, MPV 10.8, Immature Gran % (Auto) NAILER MACHINE, Neut % (Auto) NAILER MACHINE, Lymph % (Auto) NAILER MACHINE, [place] % (Auto) NAILER MACHINE, Eos % (Auto) NAILER MACHINE, Baso % (Auto) NAILER MACHINE, Absolute Neuts (auto) 16.3 H, Total Counted 100, Neutrophils % (Manual) 75 H, Band Neutrophils % 13 H, Lymphocytes % (Manual) 4 L, Monocytes % (Manual) 7, Metamyelocytes % 1 04/26/18 07:15: Sodium 132 L, Potassium 4.2, Chloride 95 L, Carbon Dioxide 26.0, Anion Gap 11, BUN 40 H, Creatinine 1.40 H, Est GFR (MDRD) Af Amer 67, Est GFR (MDRD) Non-Af 56 L, BUN/Creatinine Ratio 28.6 H, Glucose 199 H, Calcium 8.7, Total Bilirubin 2.30 H 04/26/18 07:15: Lactic Acid 3.7 H 04/26/18 07:15: D-Dimer Quant (PE/DVT) 5.41 H* 04/26/18 07:15: Phosphorus 3.2, Magnesium 2.6 04/26/18 07:15: Hemoglobin A1c 5.6 04/26/18 11:10: Lactic Acid 1.9 04/26/18 12:30: Urine Color Yellow, Urine Clarity Sl. Cloudy, Urine pH 6.0, Ur Specific [place] 1.005, Urine Protein 100 H, Urine Glucose (UA) Normal, Urine Ketones Negative, Urine Occult Blood 250 H, Urine Nitrite Negative, Urine Bilirubin Negative, Urine Urobilinogen 1 H, Ur Leukocyte Esterase 25 H, Urine RBC 0-5 SEEN, Urine WBC 0 SEEN 04/26/18 14:42: Troponin I 1.680 H* 04/26/18 16:45: PT 15.6 H, INR 1.2 Rhythm: EKG: ECHO: Stress Test: Cardiac Cath: PCI: CT Surgery: Holter monitor: EPS: PPM: CXR: Chest CT Scan: Assessment/Plan 1. Abnormal cardiac enzymes The etiology of the above is unclear but is likely secondary to sepsis. I do not think that this is a primary cardiac etiology. His tachycardia appears to be secondary and my recommendation will be to treat the underlying cause as we are doing with supportive intravenous fluids, and antibiotics. Would recommend obtaining an echocardiogram to assess his left ventricular function. I would not recommend any high intensity Lovenox at this time or statins. Thank you for allowing me to participate in the care of your patient. Please don't hesitate to call if any issues arise
--- NOTE | 2018-04-26 17:23 | CON.PCM_ITS ---
Reason for Consult Date of Consultation: 04/26/18 Reason for Consultation: Abnormal cardiac enzymes. History of Present Illness: The patient is a 58 year old M with no significant past medical history presented to the emergency room because of nausea, vomiting and hiccups. Around 5 days ago, he saw a chiropractor for left buttock and left leg pain, was diagnosed with sciatica and he was given prescriptions for Valium and [place]. He started taking those medications on the same day and since then, he has been having persistent hiccups whenever he takes the pain pills, associated with occasional nausea and vomiting as well as poor appetite, weakness and muscle aches and pain and without aggravating or relieving factors. He was not able to keep any liquids or food down to his stomach. He denied fever or chills. He denied chest pain or shortness of breath. He denied abdominal pain or urinary symptoms. In the emergency department, patient was tachycardic and hypoxic, blood pressure was stable. Routine blood work was remarkable for leukocytosis with neutrophilia, sodium of 132, BUN of 40 and creatinine of 1.40. His blood glucose was 199 without history of diabetes. Lactic acid was 3.7. LFT revealed total bilirubin of 2.3, alk phos of 223, AST of 63 and ALT of 56 which is normal. His lipase was normal. D-dimer was elevated at 5.41. His EKG revealed normal sinus tachycardia without evidence of acute ischemic changes. CTA chest showed no PE or dissection, no pneumonia. Chest x-ray showed no acute findings. CT scan abdomen and pelvis with contrast revealed normal liver, normal gallbladder and extrahepatic. System, normal bilateral adrenals, normal ki dneys, normal small intestine, normal stomach and colon, normal urinary bladder, revealed low attenuated peripheral bands within the spleen and reported as splenic injury cannot be excluded. ED physician spoke with the radiologist and he stated no evidence of splenic injury and those bands could be due to the timing of the IV contrast. He is being admitted for intractable nausea and vomiting probably secondary to pain medication side effects, complicated by acute kidney injury and hypovolemic hyponatremia as well as lactic acidosis, also found to have hyperglycemia, elevated LFT and elevated d-dimer. He specifically denies any chest pain or paroxysmal nocturnal dyspnea or previous cardiac problems. Past Medical History Allergies/Adverse Reactions: Allergies No Known Allergies Allergy (Verified 04/26/18 07:09) Home Medications: Ambulatory Orders Medication Instructions Recorded Diazepam 2 mg PO QHS 04/26/18 Hydrocodone/Acetaminophen 1 - 2 tab PO Q6H PRN PRN 04/26/18 [Hydrocodone-Acetamin 5-325 mg] Prednisone 1 tab PO BID 04/26/18 Surgical History: no surgical history Psychiatric History: No pertinent psych hx - *Family History Maternal History Items: No pertinent history Paternal History Items: Hypertension Lives: Spouse/ Significant Other Smoking Status: Never smoker Alcohol: Occasional Drugs: None Review of Systems - Review of Systems General: Reports: Fever, Fatigue. Denies: Night Sweats HEENT: Denies: Vision Change Cardiovascular: Denies: Chest Discomfort, Shortness of Breath, Orthopnea, PND, Peripheral Edema, Palpitations, Lightheadedness, Dizziness, Near Syncope, Syncope Respiratory: Denies: Cough, Sputum Production, Hemoptysis Gastrointestinal: Reports: Epigastric Discomfort, Nausea, Emesis. Denies: Indigestion, Hematemesis, Hematochezia, Melena Genitourinary: Denies: Dysuria, Hematuria Skin: Denies: Rash Neurological: Denies: Dizziness Psychiatric: Denies: Anxiety Endocrine: Denies: Unexplained Weight Loss Hematologic/ Lymphatic: Denies: Anemia Subjectve: Pleasant gentleman lying in bed looks unwell Objective: Vital Signs Temp Pulse Resp BP Pulse Ox 97.9 F 113 H 18 103/64 96 04/26/18 15:28 04/26/18 15:28 04/26/18 15:28 04/26/18 15:28 04/26/18 15:28 Oxygen Flow Rate (L/min) 4 Oxygen Delivery Method Nasal Cannula Weight: 175 lb Body Mass Index (BMI) 25.1 General: Awake, Alert, Oriented x 3 HEENT: PERRL, EOMI, Sclera Non Icteric Neck: Supple, Good ROM, No Lymph Node Enlargement Lungs: Clear to auscultation Cardiovascular: Regular Rhythm, Normal S1, Normal S2, No Murmurs, No Rubs, No Gallops Vascular: No Carotid Bruits, Normal Femoral Pulses, Normal Radial Pulses, Normal Dorsalis Pedal Pulse, Normal Posterior Tibial Pulses Abdomen: Bowel Sounds Present, Soft, Non Tender, No HSM, No Organomegaly Extremities: No Cyanosis, No Clubbing, No edema Musculoskeletal: No Erythema Skin: No Rashes Lymphatic: No Lymph Node Enlargement Neurological: No Focal Motor or Sensory Deficit Psych/Mental Status: Appropriate 04/26/18 07:15: WBC 18.5 H, RBC 4.95, Hgb 15.6, Hct 46.1, MCV 93.1, MCH 31.5, MCHC 33.8, RDW 13.3, RDW Differential 44.2 H, Plt Count 145 L, MPV 10.8, Immature Gran % (Auto) ROLL CLAMP OPERATOR, Neut % (Auto) ROLL CLAMP OPERATOR, Lymph % (Auto) ROLL CLAMP OPERATOR, [place] % (Auto) ROLL CLAMP OPERATOR, Eos % (Auto) ROLL CLAMP OPERATOR, Baso % (Auto) ROLL CLAMP OPERATOR, Absolute Neuts (auto) 16.3 H, Total Counted 100, Neutrophils % (Manual) 75 H, Band Neutrophils % 13 H, Lymphocytes % (Manual) 4 L, Monocytes % (Manual) 7, Metamyelocytes % 1 04/26/18 07:15: Sodium 132 L, Potassium 4.2, Chloride 95 L, Carbon Dioxide 26.0, Anion Gap 11, BUN 40 H, Creatinine 1.40 H, Est GFR (MDRD) Af Amer 67, Est GFR (MDRD) Non-Af 56 L, BUN/Creatinine Ratio 28.6 H, Glucose 199 H, Calcium 8.7, Total Bilirubin 2.30 H 04/26/18 07:15: Lactic Acid 3.7 H 04/26/18 07:15: D-Dimer Quant (PE/DVT) 5.41 H* 04/26/18 07:15: Phosphorus 3.2, Magnesium 2.6 04/26/18 07:15: Hemoglobin A1c 5.6 04/26/18 11:10: Lactic Acid 1.9 04/26/18 12:30: Urine Color Yellow, Urine Clarity Sl. Cloudy, Urine pH 6.0, Ur Specific [place] 1.005, Urine Protein 100 H, Urine Glucose (UA) Normal, Urine Ketones Negative, Urine Occult Blood 250 H, Urine Nitrite Negative, Urine Bilirubin Negative, Urine Urobilinogen 1 H, Ur Leukocyte Esterase 25 H, Urine RBC 0-5 SEEN, Urine WBC 0 SEEN 04/26/18 14:42: Troponin I 1.680 H* 04/26/18 16:45: PT 15.6 H, INR 1.2 Rhythm: EKG: ECHO: Stress Test: Cardiac Cath: PCI: CT Surgery: Holter monitor: EPS: PPM: CXR: Chest CT Scan: Assessment/Plan 1. Abnormal cardiac enzymes The etiology of the above is unclear but is likely secondary to sepsis. I do not think that this is a primary cardiac etiology. His tachycardia appears to be secondary and my recommendation will be to treat the underlying cause as we are doing with supportive intravenous fluids, and antibiotics. * Would recommend obtaining an echocardiogram to assess his left ventricular function. * I would not recommend any high intensity Lovenox at this time or statins. * * Thank you for allowing me to participate in the care of your patient. Please don't hesitate to call if any issues arise
[2018-04-26 17:47] LABS: Amphetamine Urine VISTA NEGATIVE (<1000 ng/mL); Barbiturate Urine VISTA NEGATIVE (< 200 ng/mL); Benzodiazepine Urine VISTA NEGATIVE (< 200 ng/mL); Cocaine Urine VISTA NEGATIVE (< 300 ng/mL); Ecstacy Urine VISTA NEGATIVE (< 500 ng/mL); Methadone Urine VISTA NEGATIVE (< 300 ng/mL); PCP Urine VISTA NEGATIVE (< 25 ng/mL); THC Urine VISTA NEGATIVE (< 50 ng/mL); Vista UDS pH Range 5
[2018-04-26 19:01] LABS: Bedside Glucose 133 mg/dL (70-110)
[2018-04-26] MEDS: Aspirin 300 MG Suppository RECTAL (19:11)
--- NOTE | 2018-04-26 21:18 | PCM.RX.CS ---
Consult Pharmacy has been consulted to manage selected antiobiotic: Vancomycin Type of Consult: New start Suspected Infection: Sepsis Prior Doses of Antibiotics Received/Current Regimen: Medications Vancomycin HCl (Vancomycin) 1,000 mg in 200 mls @ 200 mls/hr IV Q12H TERRY Discontinued Medications Vancomycin HCl 1,250 mg/ (Sodium Chloride) 275 mls @ 167 mls/hr IV X1 ONE Stop: 04/26/18 20:38 Last Admin: 04/26/18 20:30 Dose: 167 mls/hr Labs: Sodium 132 mmol/L (136-145) L 04/26/18 07:15 Potassium 4.2 mmol/L (3.5-5.1) 04/26/18 07:15 Chloride 95 mmol/L (98-107) L 04/26/18 07:15 Carbon Dioxide 26.0 mmol/L (21.0-32.0) 04/26/18 07:15 Anion Gap 11 (5-15) 04/26/18 07:15 BUN 40 mg/dL (7-18) H 04/26/18 07:15 Creatinine 1.40 mg/dL (0.70-1.30) H 04/26/18 07:15 Est GFR (MDRD) Af Amer 67 mL/min (>60) 04/26/18 07:15 Est GFR (MDRD) Non-Af 56 mL/min (>60) L 04/26/18 07:15 BUN/Creatinine Ratio 28.6 RATIO (10-20) H 04/26/18 07:15 Glucose 199 mg/dL (74-106) H 04/26/18 07:15 Weight used for dosin.4 kg Estimated Creatinine Clearance: 61 Goal Trough: 15-20 mcg/mL Pharmacy Plan for Drug Dosing: Pharmacy Service will continue to monitor and adjust dosing as required. Follow-Up Labs: Trough Vancomycin Labs to be done on [date and time ordered]: 04/28/18 @0800
[2018-04-27] VITALS (19 sets, daily range): BP systolic 93–125; BP diastolic 71–96; PULSE 118–140; RESP 28–37; TEMP 37.4–38.9; O2SAT 91–96
[2018-04-27 01:21] LABS: Bedside Glucose 160 mg/dL (70-110)
[2018-04-27 01:39] LABS: M R Staph aureus DNA By PCR Negative (Negative); Probe Check PASS; Specimen Processing Control PASS
[2018-04-27] MEDS: 0.9% Normal Saline 1,000 ML 125 ML IV (02:14)
[2018-04-27] MEDS: Acetaminophen 650 MG Suppository RECTAL ×2 (04:26→10:26)
[2018-04-27 04:39] LABS: Absolute Lymphocyte Count 0.77 X10^3/ul (0.83-4.51); Absolute Neutrophil Count 20.1 X10^3/uL (2.0-7.7); Basophil# 0.11 X10^3/uL; Basophil% 0.5 % (0-1); Differential Indicated SCAN CRITERIA MET; Hematocrit 43.3 % (40-54); Lymphocyte # 0.77 X10^3/ul (4.0); Lymphocyte % 3.4 % (19-41); Mean Corp Hgb Conc 34.6 g/gl (32-36); Mean Corpuscular Hgb 32.4 pg (27.0-32.0); Mean Corpuscular Volume 93.5 fL (80-94); Mean Platelet Vol. 11.5 fl (6.2-12.0); Monocyte# 1.16 X10^3/uL; Monocyte% 5.1 % (0-10); Neutrophil # 20.05 X10^3/uL (2.7-7.7); Neutrophil % 88.3 % (47-70); POSITIVE COUNT YES; POSITIVE DIFFERENTIAL YES; POSITIVE MORPHOLOGY YES; Platelet Count 120 K/mm3 (150-450); RBC Distribution Width CV 13.8 % (11.6-14.6); RBC Distribution Width SD 45.8 fl (35.1-43.9); Red Blood Count 4.63 M/mm3 (4.6-6.2); White Blood Count 22.7 K/mm3 (4.4-11.0)
[2018-04-27 05:02] LABS: ALB/GLOB Ratio 0.4 RATIO (0.9-2.4); AST(SGOT) 73 U/L (15-37); Alanine Aminotransfer ALT/SGPT 47 U/L (16-61); Albumin, Serum 1.7 g/dL (3.2-5.0); Alkaline Phosphatase 158 U/L (45-117); Anion Gap 12 (5-15); BUN 41 mg/dL (7-18); BUN/Creat Ratio 25.6 RATIO (10-20); Calcium,Total 7.9 mg/dL (8.5-10.1); Chloride 112 mmol/L (98-107); EST Glomerular Filtration Rate 48 mL/min (>60); Est Glom Filt Rate - Afr Amer 58 mL/min (>60); Estimated Creatinine Clearance 53.23 ml/min; Globulin 4.6 g/dL (2.2-4.2); Glucose 169 mg/dL (74-106); Potassium 3.8 mmol/L (3.5-5.1); Protein, Total 6.3 g/dL (6.4-8.2); Sodium Level 146 mmol/L (136-145)
[2018-04-27 05:08] LABS: Differential Comment SCANNED; Toxic Granulation 3+
[2018-04-27] MEDS: Piperacil/Tazobactam 3.375 GM/50 ML ML IV ×2 (05:08→14:43)
[2018-04-27] MEDS: Heparin Injection (Vial) 5,000 UNIT/ML VIAL 5000 UNIT SC (05:09)
--- NOTE | 2018-04-27 06:58 | PN.CARD_ITS ---
Subjectve: Patient seen and evaluated. Still in the intensive care unit. Mildly confused. And spiking fevers. Continues to be tachycardic Objective: Vital Signs Temp Pulse Resp BP Pulse Ox 100.2 F H 118 H 28 H 101/74 92 04/27/18 06:00 04/27/18 06:00 04/27/18 06:00 04/27/18 06:00 04/27/18 06:00 Oxygen Flow Rate (L/min) 2 Oxygen Delivery Method Nasal Cannula Weight: 171 lb 11.841 oz Body Mass Index (BMI) 25.1 Intake and Output for Last 24 Hours 04/26/18 04/26/18 04/27/18 00:59 23:59 23:59 Intake Total 765 / 765 Output Total 500 / 500 Balance 265 / 265 General: Awake, Alert, Oriented x 3 HEENT: PERRL, EOMI, Sclera Non Icteric Neck: Supple, Good ROM, No Lymph Node Enlargement Lungs: Clear to auscultation Cardiovascular: Regular Rhythm, Normal S1, Normal S2, No Murmurs, No Rubs, No Gallops Vascular: No Carotid Bruits, Normal Femoral Pulses, Normal Radial Pulses, Normal Dorsalis Pedal Pulse, Normal Posterior Tibial Pulses Abdomen: Bowel Sounds Present, Soft, Non Tender, No HSM, No Organomegaly Extremities: No Cyanosis, No Clubbing, No edema Skin: No Rashes Neurological: No Focal Motor or Sensory Deficit Psych/Mental Status: Restless 04/26/18 07:15: WBC 18.5 H, RBC 4.95, Hgb 15.6, Hct 46.1, MCV 93.1, MCH 31.5, MCHC 33.8, RDW 13.3, RDW Differential 44.2 H, Plt Count 145 L, MPV 10.8, Immature Gran % (Auto) LADDER OPERATOR, Neut % (Auto) LADDER OPERATOR, Lymph % (Auto) LADDER OPERATOR, [place] % (Auto) LADDER OPERATOR, Eos % (Auto) LADDER OPERATOR, Baso % (Auto) LADDER OPERATOR, Absolute Neuts (auto) 16.3 H, Total Counted 100, Neutrophils % (Manual) 75 H, Band Neutrophils % 13 H, Lymphocytes % (Manual) 4 L, Monocytes % (Manual) 7, Metamyelocytes % 1 04/26/18 07:15: Sodium 132 L, Potassium 4.2, Chloride 95 L, Carbon Dioxide 26.0, Anion Gap 11, BUN 40 H, Creatinine 1.40 H, Est GFR (MDRD) Af Amer 67, Est GFR (MDRD) Non-Af 56 L, BUN/Creatinine Ratio 28.6 H, Glucose 199 H, Calcium 8.7, Total Bilirubin 2.30 H 04/26/18 07:15: Lactic Acid 3.7 H 04/26/18 07:15: D-Dimer Quant (PE/DVT) 5.41 H* 04/26/18 07:15: Phosphorus 3.2, Magnesium 2.6 04/26/18 07:15: Hemoglobin A1c 5.6 04/26/18 11:10: Lactic Acid 1.9 04/26/18 12:30: Urine Color Yellow, Urine Clarity Sl. Cloudy, Urine pH 6.0, Ur Specific [employer] 1.005, Urine Protein 100 H, Urine Glucose (UA) Normal, Urine Ketones Negative, Urine Occult Blood 250 H, Urine Nitrite Negative, Urine Bilirubin Negative, Urine Urobilinogen 1 H, Ur Leukocyte Esterase 25 H, Urine RBC 0-5 SEEN, Urine WBC 0 SEEN 04/26/18 14:42: Troponin I 1.680 H* 04/26/18 16:45: PT 15.6 H, INR 1.2 04/26/18 18:06: Troponin I 1.580 H* 04/26/18 22:15: Troponin I 1.920 H* 04/27/18 04:10: WBC 22.7 H, RBC 4.63, Hgb 15.0, Hct 43.3, MCV 93.5, MCH 32.4 H, MCHC 34.6, RDW 13.8, RDW Differential 45.8 H, Plt Count 120 L, MPV 11.5, Immature Gran % (Auto) 2.700 H, Neut % (Auto) 88.3 H, Lymph % (Auto) 3.4 L, [place] % (Auto) 5.1, Eos % (Auto) 0.0, Baso % (Auto) 0.5, Absolute Neuts (auto) 20.1 H, Total Counted Not Reportable 04/27/18 04:10: Sodium 146 H, Potassium 3.8, Chloride 112 H, Carbon Dioxide 22.0, Anion Gap 12, BUN 41 H, Creatinine 1.60 H, Est GFR (MDRD) Af Amer 58 L, Est GFR (MDRD) Non-Af 48 L, BUN/Creatinine Ratio 25.6 H, Glucose 169 H, Calcium 7.9 L, Total Bilirubin 2.70 H Rhythm: EKG: ECHO: Stress Test: Cardiac Cath: PCI: CT Surgery: Holter monitor: EPS: PPM: CXR: Chest CT Scan: Medical Necessity - Tobacco Use Smoking Status: Never smoker Assessment/Plan 1. Abnormal cardiac grgtoev-hja-OC elevation myocardial infarction The etiology of the above is unclear but is likely secondary to sepsis. I do not think that this is a primary cardiac etiology. His tachycardia appears to be secondary and my recommendation will be to treat the underlying cause as we are doing with supportive intravenous fluids, and antibiotics. * Would recommend obtaining an echocardiogram to assess his left ventricular function. Depending on the findings of this test further recommendations will be made. * I would not recommend any high intensity Lovenox at this time or statins. * * Thank you for allowing me to participate in the care of your patient. Please don't hesitate to call if any issues arise
--- NOTE | 2018-04-27 07:22 | PN_ITS ---
Patient Problems: Active and Suspected Problems Elevated LFTs (Acute) Hyperglycemia (Acute) Acute kidney injury (Acute) Intractable nausea and vomiting (Acute) Vitals/I&O's: Vital Signs Temp Pulse Resp BP Pulse Ox 100.1 F H 133 H 33 H 107/82 H 93 04/27/18 07:00 04/27/18 07:00 04/27/18 07:00 04/27/18 07:00 04/27/18 07:00 Oxygen Flow Rate (L/min) 2 Oxygen Delivery Method Room Air Weight: 77.9 kg Body Mass Index (BMI) 25.1 Intake and Output for Last 24 Hours 04/26/18 04/26/18 04/27/18 00:59 23:59 23:59 Intake Total 765 / 765 Output Total 500 / 500 Balance 265 / 265 Microbiology Past 72 Hours 04/26/18 16:36 Blood Culture (Wb) - Anticubital Left Bacteria Detection (PCR) - Final Staphylococcus aureus 04/26/18 16:36 Blood Culture (Wb) - Anticubital Left Blood Culture - Preliminary 04/26/18 20:10 Mucosa - Nose Respiratory Panel (PCR) - Final Laboratory Results 04/26/18 07:15: WBC 18.5 H, RBC 4.95, Hgb 15.6, Hct 46.1, MCV 93.1, MCH 31.5, MCHC 33.8, RDW 13.3, RDW Differential 44.2 H, Plt Count 145 L, MPV 10.8, Immature Gran % (Auto) GREASE PACKER, Neut % (Auto) GREASE PACKER, Lymph % (Auto) GREASE PACKER, [place] % (Auto) GREASE PACKER, Eos % (Auto) GREASE PACKER, Baso % (Auto) GREASE PACKER, Absolute Neuts (auto) 16.3 H, Absolute Lymphs (auto) 0.74 L, Total Counted 100, Neutrophils % (Manual) 75 H, Band Neutrophils % 13 H, Lymphocytes % (Manual) 4 L, Monocytes % (Manual) 7, Metamyelocytes % 1, Diff Path Review May foll, Toxic Granulation 1+, Platelet Estimate ADEQUATE, RBC Morphology NORM C+C 04/26/18 07:15: Sodium 132 L, Potassium 4.2, Chloride 95 L, Carbon Dioxide 26.0, Anion Gap 11, BUN 40 H, Creatinine 1.40 H, Estim Creat Clear Calc 60.83, Est GFR (MDRD) Af Amer 67, Est GFR (MDRD) Non-Af 56 L, BUN/Creatinine Ratio 28.6 H, Glucose 199 H, Calcium 8.7, Total Bilirubin 2.30 H, AST 63 H, ALT 56, Alkaline Phosphatase 223 H, Total Protein 7.7, Albumin 2.3 L, Globulin 5.4 H, Albumin/Globulin Ratio 0.4 L, Lipase 340 04/26/18 07:15: Lactic Acid 3.7 H 04/26/18 07:15: D-Dimer Quant (PE/DVT) 5.41 H* 04/26/18 07:15: Phosphorus 3.2, Magnesium 2.6 04/26/18 07:15: Total Creatine Kinase 314 H 04/26/18 07:15: Hemoglobin A1c 5.6 04/26/18 11:10: Lactic Acid 1.9 04/26/18 12:30: Urine Color Yellow, Urine Clarity Sl. Cloudy, Urine pH 6.0, Ur Specific [place] 1.005, Urine Protein 100 H, Urine Glucose (UA) Normal, Urine Ketones Negative, Urine Occult Blood 250 H, Urine Nitrite Negative, Urine Bilirubin Negative, Urine Urobilinogen 1 H, Ur Leukocyte Esterase 25 H, Urine RBC 0-5 SEEN, Urine WBC 0 SEEN, Ur Squamous Epith Cells 0-5 SEEN, Urine Bacteria 1+, Urine Mucus 0 SEEN 04/26/18 14:28: POC Glucose 149 H 04/26/18 14:42: Troponin I 1.680 H* 04/26/18 16:30: Urine Opiates Screen POSITIVE H, Urine Methadone Screen NEGATIVE, Ur Barbiturates Screen NEGATIVE, Ur Phencyclidine Scrn NEGATIVE, Ur Amphetamines Screen NEGATIVE, U Methamphetamin-MDMA NEGATIVE, U Benzodiazepines Scrn NEGATIVE, Urine Cocaine Screen NEGATIVE, U Cannabinoids Screen NEGATIVE, Ur Drug Screen Comment 04/26/18 16:45: PT 15.6 H, INR 1.2 04/26/18 18:06: Troponin I 1.580 H* 04/26/18 18:55: POC Glucose 133 H 04/26/18 22:15: Troponin I 1.920 H* 04/26/18 23:10: MRSA (PCR) Negative 04/27/18 01:18: POC Glucose 160 H 04/27/18 04:10: WBC 22.7 H, RBC 4.63, Hgb 15.0, Hct 43.3, MCV 93.5, MCH 32.4 H, MCHC 34.6, RDW 13.8, RDW Differential 45.8 H, Plt Count 120 L, MPV 11.5, Im mature Gran % (Auto) 2.700 H, Neut % (Auto) 88.3 H, Lymph % (Auto) 3.4 L, [place] % (Auto) 5.1, Eos % (Auto) 0.0, Baso % (Auto) 0.5, Absolute Neuts (auto) 20.1 H, Absolute Lymphs (auto) 0.77 L, Total Counted Not Reportable, Differential Comment SCANNED, Diff Path Review October marv, Toxic Granulation 3+ 04/27/18 04:10: Sodium 146 H, Potassium 3.8, Chloride 112 H, Carbon Dioxide 22.0, Anion Gap 12, BUN 41 H, Creatinine 1.60 H, Estim Creat Clear Calc 53.23, Est GFR (MDRD) Af Amer 58 L, Est GFR (MDRD) Non-Af 48 L, BUN/Creatinine Ratio 25.6 H, Glucose 169 H, Calcium 7.9 L, Total Bilirubin 2.70 H, AST 73 H, ALT 47, Alkaline Phosphatase 158 H, Total Protein 6.3 L, Albumin 1.7 L, Globulin 4.6 H, Albumin/Globulin Ratio 0.4 L Current Medications Acetaminophen (Tylenol) 650 mg RECTAL Q6H PRN PRN PRN Reason: FEVER Last Admin: 04/27/18 04:26 Dose: 650 mg Chlorpromazine HCl (Thorazine) 25 mg PO TID COUNT INCLUDES THE [facility] Last Admin: 04/27/18 05:09 Dose: Not Given Heparin Sodium (Porcine) (Heparin Na) 5,000 unit SC Q8 COUNT INCLUDES THE [facility] Last Admin: 04/27/18 05:09 Dose: 5,000 unit Sodium Chloride () 1,000 mls @ 125 mls/hr IV .Q8H COUNT INCLUDES THE [facility] Last Admin: 04/27/18 02:14 Dose: 125 mls/hr Pantoprazole Sodium 40 mg/ (Sodium Chloride) 110 mls @ 330 mls/hr IV Q24 COUNT INCLUDES THE [facility] Last Admin: 04/26/18 15:09 Dose: 330 mls/hr Piperacillin Sod/Tazobactam Sod (Zosyn) 3.375 gm in 50 mls @ 12.5 mls/hr IV Q8 TERRY Last Admin: 04/27/18 05:08 Dose: 12.5 mls/hr Vancomycin IV Pharmacy to Dose (1 ea/ Sodium Chloride) 500 mls @ 250 mls/hr IV PRN PRN; Protocol PRN Reason: Rx to Dose Sodium Chloride () 250 mls @ 15 mls/hr IV .[id number] PRN PRN Reason: SALINE FLUSH Sodium Chloride () 250 mls @ 15 mls/hr IV .[id number] PRN PRN Reason: SALINE FLUSH Vancomycin HCl (Vancomycin) 1,000 mg in 200 mls @ 200 mls/hr IV Q12H TERRY Magnesium Hydroxide (Milk Of Magnesia) 30 ml PO DAILY PRN PRN PRN Reason: Constipation Ondansetron HCl (Zofran) 4 mg IV Q6H PRN PRN PRN Reason: NAUSEA/VOMITING Promethazine HCl (Phenergan) 6.25 mg IV Q6H PRN PRN PRN Reason: NAUSEA/VOMITING Sodium Chloride () 5 - 30 ml IV UD PRN PRN Reason: SALINE FLUSH Medical Necessity - Tobacco Use Smoking Status: Never smoker Assessment/Plan All Active Problems Elevated LFTs (Acute) Hyperglycemia (Acute) Acute kidney injury (Acute) Intractable nausea and vomiting (Acute)
--- NOTE | 2018-04-27 07:29 | PCM.CON.CC ---
Reason for Consult Date of Consultation: 04/27/18 Reason for Consultation: Severe sepsis History of Present Illness: The patient is a 58-year-old male, with a history as outlined below, who presented to the emergency department on April 26 with complaints of nausea and vomiting. The patient was recently evaluated by a chiropractor due to the presence of lower back pain and sciatica. Apparently, he was started on [place] and Valium. Since that time, the patient has been experiencing the aforementioned symptoms along with poor p.o. intake and generalized weakness. On presentation to the emergency department, the patient was noted to be afebrile and hemodynamically stable. He was, nevertheless, tachycardic with a heart rate of 120. Laboratory evaluation revealed elevated white blood cell count to 19,000. D-dimer was increased to 5.4. Chemistry profile revealed kidney injury of unknown chronicity with a creatinine of 1.4. Lactate was elevated related to 3.7. CK was increased to 314. Troponin was increased to 1.68. CTA chest revealed no evidence for pulmonary embolism. CT abdomen/pelvis revealed nonspecific mesenteric thickening adjacent to the mid ascending colon. The patient received supplemental IV fluids and subsequently was admitted to the medical surgical floor. However, the patient later became unstable with heart rates into the 140s. His troponins continue to increase. The patient was then started on empiric antibiotics and subsequently transferred to the medical intensive care unit. Overnight, the patient remained hemodynamically stable and supplemental IV fluid hydration. He remains confused this morning. He appears to be growing MSSA from his initial blood culture. Due to the presence of continued back pain, an MRI of his L-spine was ordered. An echocardiogram was also just recently completed and revealed findings concerning for mitral valve endocarditis. Past Medical History Allergies No Known Allergies Allergy (Verified 04/26/18 07:09) Home Medications: Ambulatory Orders Medication Instructions Recorded Diazepam 2 mg PO QHS 04/26/18 Hydrocodone/Acetaminophen 1 - 2 tab PO Q6H PRN PRN 04/26/18 [Hydrocodone-Acetamin 5-325 mg] Prednisone 1 tab PO BID 04/26/18 Surgical History: no surgical history Psychiatric History: No pertinent psych hx Lives: Spouse/ Significant Other Smoking Status: Never smoker Alcohol: Occasional Drugs: None - *Family History Maternal History Items: No pertinent history Paternal History Items: Hypertension Review of Systems Constitutional: Reports: Chills, Fever, Malaise, Weakness Eyes: Denies: Blurred vision, Double vision HEENT: Denies: Head Aches, Sinus Congestion, Sinus Drainage Cardiovascular: Denies: Chest Pain, Palpitations Respiratory: Denies: Cough, Shortness of breath at rest, Sputum production Gastrointestinal: Reports: Nausea, Vomiting Genitourinary: Denies: Dysuria Musculoskeletal: Reports: Back Pain, Muscle pain Skin: Denies: Rash, Wounds Neurological: Reports: Numbness, Tingling Psychiatric: Denies: Anxiety, Depression, Homicidal Ideations, Suicidal Ideations Hematologic/ Lymphatic: Denies: Easy Bruising, Easy Bleeding Patient Problems: Active and Suspected Problems Acute endocarditis (Acute) Objective: The patient's most recent lab work, culture data and imaging studies have all been personally reviewed. Urine culture is currently pending. Blood culture dated April 26 was positive for staph aureus. Respiratory viral panel was negative. Expectorated sputum cultures pending. CTA chest revealed no evidence for pulmonary embolism. There was incidental note of bibasilar atelectasis. CT abdomen/pelvis revealed nonspecific mesenteric thickening adjacent to the mid ascending colon. - Physical Exam General: Alert, Confused, - - Ill in appearance HEENT: Atraumatic, PERRLA, Normocephalic Oral: Dry Mucosa Neck: Supple, No Nodes, Trachea Midline Lungs: Tachypneic, - - Diminished air movement in the posterior lung bases. No appreciable wheezes, rales or rhonchi. Cardiovascular: Normal S1, Normal S2, No murmurs, Tachycardic Abdomen: Bowel Sounds Present, Soft, Non Tender Extremities: No clubbing, No cyanosis, No edema Skin: No breakdown Musculoskeletal: - - Tenderness noted over L-spine. Lymphatic: No Cervical, Supraclavicular, or Inguinal Adenopathy Neurological: - - No focal neurological deficits. Vital Signs Temp Pulse Resp BP Pulse Ox 100.1 F H 133 H 33 H 107/82 H 93 04/27/18 07:00 04/27/18 07:00 04/27/18 07:00 04/27/18 07:00 04/27/18 07:00 Oxygen Flow Rate (L/min) 2 Oxygen Delivery Method Room Air Weight: 171 lb 11.841 oz Body Mass Index (BMI) 25.1 Intake and Output for Last 24 Hours 04/26/18 04/26/18 04/27/18 00:59 23:59 23:59 Intake Total 765 / 765 Output Total 500 / 500 Balance 265 / 265 Microbiology Past 72 Hours 04/26/18 16:36 Bacteria Detection (PCR) - Final Blood Culture (Wb) - Anticubital Left Staphylococcus aureus Blood Culture - Preliminary 04/26/18 20:10 Respiratory Panel (PCR) - Final Mucosa - Nose Laboratory Tests Past 24 Hrs 04/26/18 04/26/18 04/26/18 07:15 07:15 07:15 WBC 18.5 H RBC 4.95 Hgb 15.6 Hct 46.1 MCV 93.1 MCH 31.5 MCHC 33.8 RDW 13.3 RDW Differential 44.2 H Plt Count 145 L MPV 10.8 Immature Gran % (Auto) ACTIVITY MANAGER Neut % (Auto) ACTIVITY MANAGER Lymph % (Auto) ACTIVITY MANAGER [place] % (Auto) ACTIVITY MANAGER Eos % (Auto) ACTIVITY MANAGER Baso % (Auto) ACTIVITY MANAGER Absolute Neuts (auto) 16.3 H Absolute Lymphs (auto) 0.74 L Total Counted 100 Neutrophils % (Manual) 75 H Band Neutrophils % 13 H Lymphocytes % (Manual) 4 L Monocytes % (Manual) 7 Metamyelocytes % 1 Differential Comment Diff Path Review May foll Toxic Granulation 1+ Platelet Estimate ADEQUATE RBC Morphology NORM C+C PT INR D-Dimer Quant (PE/DVT) Sodium 132 L Potassium 4.2 Chloride 95 L Carbon Dioxide 26.0 Anion Gap 11 BUN 40 H Creatinine 1.40 H Estim Creat Clear Calc 60.83 Est GFR (MDRD) Af Amer 67 Est GFR (MDRD) Non-Af 56 L BUN/Creatinine Ratio 28.6 H Glucose 199 H Hemoglobin A1c Lactic Acid 3.7 H Calcium 8.7 Phosphorus Magnesium Total Bilirubin 2.30 H AST 63 H ALT 56 Alkaline Phosphatase 223 H Total Creatine Kinase Troponin I Total Protein 7.7 Albumin 2.3 L Globulin 5.4 H Albumin/Globulin Ratio 0.4 L Lipase 340 Urine Color Urine Clarity Urine pH Ur Specific [place] Urine Protein Urine Glucose (UA) Urine Ketones Urine Occult Blood Urine Nitrite Urine Bilirubin Urine Urobilinogen Ur Leukocyte Esterase Urine RBC Urine WBC Ur Squamous Epith Cells Urine Bacteria Urine Mucus Urine Opiates Screen Urine Methadone Screen Ur Barbiturates Screen Ur Phencyclidine Scrn Ur Amphetamines Screen U Methamphetamin-MDMA U Benzodiazepines Scrn Urine Cocaine Screen U Cannabinoids Screen Ur Drug Screen Comment MRSA (PCR) 04/26/18 04/26/18 04/26/18 07:15 07:15 07:15 WBC RBC Hgb Hct MCV MCH MCHC RDW RDW Differential Plt Count MPV Immature Gran % (Auto) Neut % (Auto) Lymph % (Auto) [place] % (Auto) Eos % (Auto) Baso % (Auto) Absolute Neuts (auto) Absolute Lymphs (auto) Total Counted Neutrophils % (Manual) Band Neutrophils % Lymphocytes % (Manual) Monocytes % (Manual) Metamyelocytes % Differential Comment Diff Path Review Toxic Granulation Platelet Estimate RBC Morphology PT INR D-Dimer Quant (PE/DVT) 5.41 H* Sodium Potassium Chloride Carbon Dioxide Anion Gap BUN Creatinine Estim Creat Clear Calc Est GFR (MDRD) Af Amer Est GFR (MDRD) Non-Af BUN/Creatinine Ratio Glucose Hemoglobin A1c Lactic Acid Calcium Phosphorus 3.2 Magnesium 2.6 Total Bilirubin AST ALT Alkaline Phosphatase Total Creatine Kinase 314 H Troponin I Total Protein Albumin Globulin Albumin/Globulin Ratio Lipase Urine Color Urine Clarity Urine pH Ur Specific [place] Urine Protein Urine Glucose (UA) Urine Ketones Urine Occult Blood Urine Nitrite Urine Bilirubin Urine Urobilinogen Ur Leukocyte Esterase Urine RBC Urine WBC Ur Squamous Epith Cells Urine Bacteria Urine Mucus Urine Opiates Screen Urine Methadone Screen Ur Barbiturates Screen Ur Phencyclidine Scrn Ur Amphetamines Screen U Methamphetamin-MDMA U Benzodiazepines Scrn Urine Cocaine Screen U Cannabinoids Screen Ur Drug Screen Comment MRSA (PCR) 04/26/18 04/26/18 04/26/18 07:15 11:10 12:30 WBC RBC Hgb Hct MCV MCH MCHC RDW RDW Differential Plt Count MPV Immature Gran % (Auto) Neut % (Auto) Lymph % (Auto) [place] % (Auto) Eos % (Auto) Baso % (Auto) Absolute Neuts (auto) Absolute Lymphs (auto) Total Counted Neutrophils % (Manual) Band Neutrophils % Lymphocytes % (Manual) Monocytes % (Manual) Metamyelocytes % Differential Comment Diff Path Review Toxic Granulation Platelet Estimate RBC Morphology PT INR D-Dimer Quant (PE/DVT) Sodium Potassium Chloride Carbon Dioxide Anion Gap BUN Creatinine Estim Creat Clear Calc Est GFR (MDRD) Af Amer Est GFR (MDRD) Non-Af BUN/Creatinine Ratio Glucose Hemoglobin A1c 5.6 Lactic Acid 1.9 Calcium Phosphorus Magnesium Total Bilirubin AST ALT Alkaline Phosphatase Total Creatine Kinase Troponin I Total Protein Albumin Globulin Albumin/Globulin Ratio Lipase Urine Color Yellow Urine Clarity Sl. Cloudy Urine pH 6.0 Ur Specific [place] 1.005 Urine Protein 100 H Urine Glucose (UA) Normal Urine Ketones Negative Urine Occult Blood 250 H Urine Nitrite Negative Urine Bilirubin Negative Urine Urobilinogen 1 H Ur Leukocyte Esterase 25 H Urine RBC 0-5 SEEN Urine WBC 0 SEEN Ur Squamous Epith Cells 0-5 SEEN Urine Bacteria 1+ Urine Mucus 0 SEEN Urine Opiates Screen Urine Methadone Screen Ur Barbiturates Screen Ur Phencyclidine Scrn Ur Amphetamines Screen U Methamphetamin-MDMA U Benzodiazepines Scrn Urine Cocaine Screen U Cannabinoids Screen Ur Drug Screen Comment MRSA (PCR) 04/26/18 04/26/18 04/26/18 14:42 16:30 16:45 WBC RBC Hgb Hct MCV MCH MCHC RDW RDW Differential Plt Count MPV Immature Gran % (Auto) Neut % (Auto) Lymph % (Auto) [place] % (Auto) Eos % (Auto) Baso % (Auto) Absolute Neuts (auto) Absolute Lymphs (auto) Total Counted Neutrophils % (Manual) Band Neutrophils % Lymphocytes % (Manual) Monocytes % (Manual) Metamyelocytes % Differential Comment Diff Path Review Toxic Granulation Platelet Estimate RBC Morphology PT 15.6 H INR 1.2 D-Dimer Quant (PE/DVT) Sodium Potassium Chloride Carbon Dioxide Anion Gap BUN Creatinine Estim Creat Clear Calc Est GFR (MDRD) Af Amer Est GFR (MDRD) Non-Af BUN/Creatinine Ratio Glucose Hemoglobin A1c Lactic Acid Calcium Phosphorus Magnesium Total Bilirubin AST ALT Alkaline Phosphatase Total Creatine Kinase Troponin I 1.680 H* Total Protein Albumin Globulin Albumin/Globulin Ratio Lipase Urine Color Urine Clarity Urine pH Ur Specific [place] Urine Protein Urine Glucose (UA) Urine Ketones Urine Occult Blood Urine Nitrite Urine Bilirubin Urine Urobilinogen Ur Leukocyte Esterase Urine RBC Urine WBC Ur Squamous Epith Cells Urine Bacteria Urine Mucus Urine Opiates Screen POSITIVE H Urine Methadone Screen NEGATIVE Ur Barbiturates Screen NEGATIVE Ur Phencyclidine Scrn NEGATIVE Ur Amphetamines Screen NEGATIVE U Methamphetamin-MDMA NEGATIVE U Benzodiazepines Scrn NEGATIVE Urine Cocaine Screen NEGATIVE U Cannabinoids Screen NEGATIVE Ur Drug Screen Comment MRSA (PCR) 04/26/18 04/26/18 04/26/18 18:06 22:15 23:10 WBC RBC Hgb Hct MCV MCH MCHC RDW RDW Differential Plt Count MPV Immature Gran % (Auto) Neut % (Auto) Lymph % (Auto) [place] % (Auto) Eos % (Auto) Baso % (Auto) Absolute Neuts (auto) Absolute Lymphs (auto) Total Counted Neutrophils % (Manual) Band Neutrophils % Lymphocytes % (Manual) Monocytes % (Manual) Metamyelocytes % Differential Comment Diff Path Review Toxic Granulation Platelet Estimate RBC Morphology PT INR D-Dimer Quant (PE/DVT) Sodium Potassium Chloride Carbon Dioxide Anion Gap BUN Creatinine Estim Creat Clear Calc Est GFR (MDRD) Af Amer Est GFR (MDRD) Non-Af BUN/Creatinine Ratio Glucose Hemoglobin A1c Lactic Acid Calcium Phosphorus Magnesium Total Bilirubin AST ALT Alkaline Phosphatase Total Creatine Kinase Troponin I 1.580 H* 1.920 H* Total Protein Albumin Globulin Albumin/Globulin Ratio Lipase Urine Color Urine Clarity Urine pH Ur Specific [place] Urine Protein Urine Glucose (UA) Urine Ketones Urine Occult Blood Urine Nitrite Urine Bilirubin Urine Urobilinogen Ur Leukocyte Esterase Urine RBC Urine WBC Ur Squamous Epith Cells Urine Bacteria Urine Mucus Urine Opiates Screen Urine Methadone Screen Ur Barbiturates Screen Ur Phencyclidine Scrn Ur Amphetamines Screen U Methamphetamin-MDMA U Benzodiazepines Scrn Urine Cocaine Screen U Cannabinoids Screen Ur Drug Screen Comment MRSA (PCR) Negative 04/27/18 04/27/18 04:10 04:10 WBC 22.7 H RBC 4.63 Hgb 15.0 Hct 43.3 MCV 93.5 MCH 32.4 H MCHC 34.6 RDW 13.8 RDW Differential 45.8 H Plt Count 120 L MPV 11.5 Immature Gran % (Auto) 2.700 H Neut % (Auto) 88.3 H Lymph % (Auto) 3.4 L [place] % (Auto) 5.1 Eos % (Auto) 0.0 Baso % (Auto) 0.5 Absolute Neuts (auto) 20.1 H Absolute Lymphs (auto) 0.77 L Total Counted Not Reportable Neutrophils % (Manual) Band Neutrophils % Lymphocytes % (Manual) Monocytes % (Manual) Metamyelocytes % Differential Comment SCANNED Diff Path Review May foll Toxic Granulation 3+ Platelet Estimate RBC Morphology PT INR D-Dimer Quant (PE/DVT) Sodium 146 H Potassium 3.8 Chloride 112 H Carbon Dioxide 22.0 Anion Gap 12 BUN 41 H Creatinine 1.60 H Estim Creat Clear Calc 53.23 Est GFR (MDRD) Af Amer 58 L Est GFR (MDRD) Non-Af 48 L BUN/Creatinine Ratio 25.6 H Glucose 169 H Hemoglobin A1c Lactic Acid Calcium 7.9 L Phosphorus Magnesium Total Bilirubin 2.70 H AST 73 H ALT 47 Alkaline Phosphatase 158 H Total Creatine Kinase Troponin I Total Protein 6.3 L Albumin 1.7 L Globulin 4.6 H Albumin/Globulin Ratio 0.4 L Lipase Urine Color Urine Clarity Urine pH Ur Specific [place] Urine Protein Urine Glucose (UA) Urine Ketones Urine Occult Blood Urine Nitrite Urine Bilirubin Urine Urobilinogen Ur Leukocyte Esterase Urine RBC Urine WBC Ur Squamous Epith Cells Urine Bacteria Urine Mucus Urine Opiates Screen Urine Methadone Screen Ur Barbiturates Screen Ur Phencyclidine Scrn Ur Amphetamines Screen U Methamphetamin-MDMA U Benzodiazepines Scrn Urine Cocaine Screen U Cannabinoids Screen Ur Drug Screen Comment MRSA (PCR) POC Glucose 04/27/18 04/26/18 04/26/18 01:18 18:55 14:28 POC Glucose 160 H 133 H 149 H Clinical Impression(s) from Imaging Studies Abdomen/Pelvis CT 04/26/18 07:23 IMPRESSION: Curvilinear bands of low attenuation within the spleen along the periphery. Splenic injury cannot be excluded. No subcapsular collection. Nonspecific mesenteric thickening adjacent to the mid ascending colon. Duplicated IVC. Electronically Signed: Hernando Jarvis DO at 9:56 EST Tel [phone], Service support , Chest X-Ray 04/26/18 07:23 IMPRESSION: Bibasilar atelectasis. Cardiomegaly. Electronically Signed: Hernando Jarvis DO at 8:22 EST Tel [phone], Service support , Chest CTA 04/26/18 08:21 IMPRESSION: No demonstrated pulmonary embolism or arterial dissection. Basilar atelectasis. Electronically Signed: Hernando Jarvis DO at 10:09 EST Tel [phone], Service support , Assessment/Plan Active and Suspected Problems Acute endocarditis (Acute) RECOMMENDATIONS: 1. Continue current supportive measures with antibiotics and supplemental IV fluid hydration. 2. Patient to remain n.p.o. for now. 3. Transition from normal saline to D5W given rising sodium and chloride levels. 4. Obtain L-spine MRI. 5. Infectious diseases consultation is pending. 6. Okay to discontinue vancomycin from my perspective. IMPRESSIONS: 1. Severe sepsis secondary to MSSA bacteremia and mitral valve endocarditis The patient does have evidence of MSSA bacteremia and what appears to be mitral valve endocarditis on a surface echocardiogram. Urine culture is currently pending. However, given the patient's complaints of low back pain, will obtain MRI L-spine to evaluate for the presence of an infectious source. The patient will be continued on broad-spectrum antibiotics for now. Continue supplemental IV fluid hydration, given n.p.o. status. Infectious diseases consultation is currently pending. 2. Acute kidney injury/hypernatremia/hyperchloremia Initially felt to be secondary to prerenal causes. However, the patient has since developed hypernatremic hyperchloremia, for which his supplemental IV fluids will be transition to D5W. Continue to monitor urine output. No indication for renal replacement therapy at this time. 3. Non-ST elevation [place] Cardiology is following. Likely secondary to demand ischemia in the setting of #1. Continue current supportive measures. 4. Intractable nausea and vomiting Continue antiemetics as ordered. This note was generated with [email or web address] dictation software. It may contain incorrect words, spelling, and punctuation that were not noted in checking the note before signing. Code Visit Inpatient E&M: 07996 Init Hosp L3
--- NOTE | 2018-04-27 07:34 | CON.PCM_ITS ---
Reason for Consult Date of Consultation: 04/27/18 Reason for Consultation: Severe sepsis History of Present Illness: The patient is a 58-year-old male, with a history as outlined below, who presented to the emergency department on April 26 with complaints of nausea and vomiting. The patient was recently evaluated by a chiropractor due to the presence of lower back pain and sciatica. Apparently, he was started on Tw[place] and Valium. Since that time, the patient has been experiencing the af orementioned symptoms along with poor p.o. intake and generalized weakness. On presentation to the emergency department, the patient was noted to be afebrile and hemodynamically stable. He was, nevertheless, tachycardic with a heart rate of 120. Laboratory evaluation revealed elevated white blood cell count to 19,000. D-dimer was increased to 5.4. Chemistry profile revealed kidney injury of unknown chronicity with a creatinine of 1.4. Lactate was elevated related to 3.7. CK was increased to 314. Troponin was increased to 1.68. CTA chest revealed no evidence for pulmonary embolism. CT abdomen/pelvis revealed nonspecific mesenteric thickening adjacent to the mid ascending colon. The patient received supplemental IV fluids and subsequently was admitted to the medical surgical floor. However, the patient later became unstable with heart rates into the 140s. His troponins continue to increase. The patient was then started on empiric antibiotics and subsequently transferred to the medical intensive care unit. Overnight, the patient remained hemodynamically stable and supplemental IV fluid hydration. He remains confused this morning. He appears to be growing MSSA from his initial blood culture. Due to the presence of continued back pain, an MRI of his L-spine was ordered. An echocardiogram was also just recently completed and revealed findings concerning for mitral valve endocarditis. Past Medical History Allergies No Known Allergies Allergy (Verified 04/26/18 07:09) Home Medications: Ambulatory Orders Medication Instructions Recorded Diazepam 2 mg PO QHS 04/26/18 Hydrocodone/Acetaminophen 1 - 2 tab PO Q6H PRN PRN 04/26/18 [Hydrocodone-Acetamin 5-325 mg] Prednisone 1 tab PO BID 04/26/18 Surgical History: no surgical history Psychiatric History: No pertinent psych hx Lives: Spouse/ Significant Other Smoking Status: Never smoker Alcohol: Occasional Drugs: None - *Family History Maternal History Items: No pertinent history Paternal History Items: Hypertension Review of Systems Constitutional: Reports: Chills, Fever, Malaise, Weakness Eyes: Denies: Blurred vision, Double vision HEENT: Denies: Head Aches, Sinus Congestion, Sinus Drainage Cardiovascular: Denies: Chest Pain, Palpitations Respiratory: Denies: Cough, Shortness of breath at rest, Sputum production Gastrointestinal: Reports: Nausea, Vomiting Genitourinary: Denies: Dysuria Musculoskeletal: Reports: Back Pain, Muscle pain Skin: Denies: Rash, Wounds Neurological: Reports: Numbness, Tingling Psychiatric: Denies: Anxiety, Depression, Homicidal Ideations, Suicidal Ideations Hematologic/ Lymphatic: Denies: Easy Bruising, Easy Bleeding Patient Problems: Active and Suspected Problems Acute endocarditis (Acute) Objective: The patient's most recent lab work, culture data and imaging studies have all been personally reviewed. Urine culture is currently pending. Blood culture dated April 26 was positive for staph aureus. Respiratory viral panel was negative. Expectorated sputum cultures pending. CTA chest revealed no evidence for pulmonary embolism. There was incidental note of bibasilar atelectasis. CT abdomen/pelvis revealed nonspecific mesenteric thickening adjacent to the mid ascending colon. - Physical Exam General: Alert, Confused, - - Ill in appearance HEENT: Atraumatic, PERRLA, Normocephalic Oral: Dry Mucosa Neck: Supple, No Nodes, Trachea Midline Lungs: Tachypneic, - - Diminished air movement in the posterior lung bases. No appreciable wheezes, rales or rhonchi. Cardiovascular: Normal S1, Normal S2, No murmurs, Tachycardic Abdomen: Bowel Sounds Present, Soft, Non Tender Extremities: No clubbing, No cyanosis, No edema Skin: No breakdown Musculoskeletal: - - Tenderness noted over L-spine. Lymphatic: No Cervical, Supraclavicular, or Inguinal Adenopathy Neurological: - - No focal neurological deficits. Vital Signs Temp Pulse Resp BP Pulse Ox 100.1 F H 133 H 33 H 107/82 H 93 04/27/18 07:00 04/27/18 07:00 04/27/18 07:00 04/27/18 07:00 04/27/18 07:00 Oxygen Flow Rate (L/min) 2 Oxygen Delivery Method Room Air Weight: 171 lb 11.841 oz Body Mass Index (BMI) 25.1 Intake and Output for Last 24 Hours 04/26/18 04/26/18 04/27/18 00:59 23:59 23:59 Intake Total 765 / 765 Output Total 500 / 500 Balance 265 / 265 Microbiology Past 72 Hours 04/26/18 16:36 Bacteria Detection (PCR) - Final Blood Culture (Wb) - Anticubital Left Staphylococcus aureus Blood Culture - Preliminary 04/26/18 20:10 Respiratory Panel (PCR) - Final Mucosa - Nose Laboratory Tests Past 24 Hrs 04/26/18 04/26/18 04/26/18 07:15 07:15 07:15 WBC 18.5 H RBC 4.95 Hgb 15.6 Hct 46.1 MCV 93.1 MCH 31.5 MCHC 33.8 RDW 13.3 RDW Differential 44.2 H Plt Count 145 L MPV 10.8 Immature Gran % (Auto) ADMINISTRATIVE CLERK Neut % (Auto) ADMINISTRATIVE CLERK Lymph % (Auto) ADMINISTRATIVE CLERK Wake % (Auto) ADMINISTRATIVE CLERK Eos % (Auto) ADMINISTRATIVE CLERK Baso % (Auto) ADMINISTRATIVE CLERK Absolute Neuts (auto) 16.3 H Absolute Lymphs (auto) 0.74 L Total Counted 100 Neutrophils % (Manual) 75 H Band Neutrophils % 13 H Lymphocytes % (Manual) 4 L Monocytes % (Manual) 7 Metamyelocytes % 1 Differential Comment Diff Path Review May foll Toxic Granulation 1+ Platelet Estimate ADEQUATE RBC Morphology NORM C+C PT INR D-Dimer Quant (PE/DVT) Sodium 132 L Potassium 4.2 Chloride 95 L Carbon Dioxide 26.0 Anion Gap 11 BUN 40 H Creatinine 1.40 H Estim Creat Clear Calc 60.83 Est GFR (MDRD) Af Amer 67 Est GFR (MDRD) Non-Af 56 L BUN/Creatinine Ratio 28.6 H Glucose 199 H Hemoglobin A1c Lactic Acid 3.7 H Calcium 8.7 Phosphorus Magnesium Total Bilirubin 2.30 H AST 63 H ALT 56 Alkaline Phosphatase 223 H Total Creatine Kinase Troponin I Total Protein 7.7 Albumin 2.3 L Globulin 5.4 H Albumin/Globulin Ratio 0.4 L Lipase 340 Urine Color Urine Clarity Urine pH Ur Specific [place] Urine Protein Urine Glucose (UA) Urine Ketones Urine Occult Blood Urine Nitrite Urine Bilirubin Urine Urobilinogen Ur Leukocyte Esterase Urine RBC Urine WBC Ur Squamous Epith Cells Urine Bacteria Urine Mucus Urine Opiates Screen Urine Methadone Screen Ur Barbiturates Screen Ur Phencyclidine Scrn Ur Amphetamines Screen U Methamphetamin-MDMA U Benzodiazepines Scrn Urine Cocaine Screen U Cannabinoids Screen Ur Drug Screen Comment MRSA (PCR) 04/26/18 04/26/18 04/26/18 07:15 07:15 07:15 WBC RBC Hgb Hct MCV MCH MCHC RDW RDW Differential Plt Count MPV Immature Gran % (Auto) Neut % (Auto) Lymph % (Auto) Wake % (Auto) Eos % (Auto) Baso % (Auto) Absolute Neuts (auto) Absolute Lymphs (auto) Total Counted Neutrophils % (Manual) Band Neutrophils % Lymphocytes % (Manual) Monocytes % (Manual) Metamyelocytes % Differential Comment Diff Path Review Toxic Granulation Platelet Estimate RBC Morphology PT INR D-Dimer Quant (PE/DVT) 5.41 H* Sodium Potassium Chloride Carbon Dioxide Anion Gap BUN Creatinine Estim Creat Clear Calc Est GFR (MDRD) Af Amer Est GFR (MDRD) Non-Af BUN/Creatinine Ratio Glucose Hemoglobin A1c Lactic Acid Calcium Phosphorus 3.2 Magnesium 2.6 Total Bilirubin AST ALT Alkaline Phosphatase Total Creatine Kinase 314 H Troponin I Total Protein Albumin Globulin Albumin/Globulin Ratio Lipase Urine Color Urine Clarity Urine pH Ur Specific [place] Urine Protein Urine Glucose (UA) Urine Ketones Urine Occult Blood Urine Nitrite Urine Bilirubin Urine Urobilinogen Ur Leukocyte Esterase Urine RBC Urine WBC Ur Squamous Epith Cells Urine Bacteria Urine Mucus Urine Opiates Screen Urine Methadone Screen Ur Barbiturates Screen Ur Phencyclidine Scrn Ur Amphetamines Screen U Methamphetamin-MDMA U Benzodiazepines Scrn Urine Cocaine Screen U Cannabinoids Screen Ur Drug Screen Comment MRSA (PCR) 04/26/18 04/26/18 04/26/18 07:15 11:10 12:30 WBC RBC Hgb Hct MCV MCH MCHC RDW RDW Differential Plt Count MPV Immature Gran % (Auto) Neut % (Auto) Lymph % (Auto) Wake % (Auto) Eos % (Auto) Baso % (Auto) Absolute Neuts (auto) Absolute Lymphs (auto) Total Counted Neutrophils % (Manual) Band Neutrophils % Lymphocytes % (Manual) Monocytes % (Manual) Metamyelocytes % Differential Comment Diff Path Review Toxic Granulation Platelet Estimate RBC Morphology PT INR D-Dimer Quant (PE/DVT) Sodium Potassium Chloride Carbon Dioxide Anion Gap BUN Creatinine Estim Creat Clear Calc Est GFR (MDRD) Af Amer Est GFR (MDRD) Non-Af BUN/Creatinine Ratio Glucose Hemoglobin A1c 5.6 Lactic Acid 1.9 Calcium Phosphorus Magnesium Total Bilirubin AST ALT Alkaline Phosphatase Total Creatine Kinase Troponin I Total Protein Albumin Globulin Albumin/Globulin Ratio Lipase Urine Color Yellow Urine Clarity Sl. Cloudy Urine pH 6.0 Ur Specific [place] 1.005 Urine Protein 100 H Urine Glucose (UA) Normal Urine Ketones Negative Urine Occult Blood 250 H Urine Nitrite Negative Urine Bilirubin Negative Urine Urobilinogen 1 H Ur Leukocyte Esterase 25 H Urine RBC 0-5 SEEN Urine WBC 0 SEEN Ur Squamous Epith Cells 0-5 SEEN Urine Bacteria 1+ Urine Mucus 0 SEEN Urine Opiates Screen Urine Methadone Screen Ur Barbiturates Screen Ur Phencyclidine Scrn Ur Amphetamines Screen U Methamphetamin-MDMA U Benzodiazepines Scrn Urine Cocaine Screen U Cannabinoids Screen Ur Drug Screen Comment MRSA (PCR) 04/26/18 04/26/18 04/26/18 14:42 16:30 16:45 WBC RBC Hgb Hct MCV MCH MCHC RDW RDW Differential Plt Count MPV Immature Gran % (Auto) Neut % (Auto) Lymph % (Auto) Wake % (Auto) Eos % (Auto) Baso % (Auto) Absolute Neuts (auto) Absolute Lymphs (auto) Total Counted Neutrophils % (Manual) Band Neutrophils % Lymphocytes % (Manual) Monocytes % (Manual) Metamyelocytes % Differential Comment Diff Path Review Toxic Granulation Platelet Estimate RBC Morphology PT 15.6 H INR 1.2 D-Dimer Quant (PE/DVT) Sodium Potassium Chloride Carbon Dioxide Anion Gap BUN Creatinine Estim Creat Clear Calc Est GFR (MDRD) Af Amer Est GFR (MDRD) Non-Af BUN/Creatinine Ratio Glucose Hemoglobin A1c Lactic Acid Calcium Phosphorus Magnesium Total Bilirubin AST ALT Alkaline Phosphatase Total Creatine Kinase Troponin I 1.680 H* Total Protein Albumin Globulin Albumin/Globulin Ratio Lipase Urine Color Urine Clarity Urine pH Ur Specific [place] Urine Protein Urine Glucose (UA) Urine Ketones Urine Occult Blood Urine Nitrite Urine Bilirubin Urine Urobilinogen Ur Leukocyte Esterase Urine RBC Urine WBC Ur Squamous Epith Cells Urine Bacteria Urine Mucus Urine Opiates Screen POSITIVE H Urine Methadone Screen NEGATIVE Ur Barbiturates Screen NEGATIVE Ur Phencyclidine Scrn NEGATIVE Ur Amphetamines Screen NEGATIVE U Methamphetamin-MDMA NEGATIVE U Benzodiazepines Scrn NEGATIVE Urine Cocaine Screen NEGATIVE U Cannabinoids Screen NEGATIVE Ur Drug Screen Comment MRSA (PCR) 04/26/18 04/26/18 04/26/18 18:06 22:15 23:10 WBC RBC Hgb Hct MCV MCH MCHC RDW RDW Differential Plt Count MPV Immature Gran % (Auto) Neut % (Auto) Lymph % (Auto) Wake % (Auto) Eos % (Auto) Baso % (Auto) Absolute Neuts (auto) Absolute Lymphs (auto) Total Counted Neutrophils % (Manual) Band Neutrophils % Lymphocytes % (Manual) Monocytes % (Manual) Metamyelocytes % Differential Comment Diff Path Review Toxic Granulation Platelet Estimate RBC Morphology PT INR D-Dimer Quant (PE/DVT) Sodium Potassium Chloride Carbon Dioxide Anion Gap BUN Creatinine Estim Creat Clear Calc Est GFR (MDRD) Af Amer Est GFR (MDRD) Non-Af BUN/Creatinine Ratio Glucose Hemoglobin A1c Lactic Acid Calcium Phosphorus Magnesium Total Bilirubin AST ALT Alkaline Phosphatase Total Creatine Kinase Troponin I 1.580 H* 1.920 H* Total Protein Albumin Globulin Albumin/Globulin Ratio Lipase Urine Color Urine Clarity Urine pH Ur Specific [place] Urine Protein Urine Glucose (UA) Urine Ketones Urine Occult Blood Urine Nitrite Urine Bilirubin Urine Urobilinogen Ur Leukocyte Esterase Urine RBC Urine WBC Ur Squamous Epith Cells Urine Bacteria Urine Mucus Urine Opiates Screen Urine Methadone Screen Ur Barbiturates Screen Ur Phencyclidine Scrn Ur Amphetamines Screen U Methamphetamin-MDMA U Benzodiazepines Scrn Urine Cocaine Screen U Cannabinoids Screen Ur Drug Screen Comment MRSA (PCR) Negative 04/27/18 04/27/18 04:10 04:10 WBC 22.7 H RBC 4.63 Hgb 15.0 Hct 43.3 MCV 93.5 MCH 32.4 H MCHC 34.6 RDW 13.8 RDW Differential 45.8 H Plt Count 120 L MPV 11.5 Immature Gran % (Auto) 2.700 H Neut % (Auto) 88.3 H Lymph % (Auto) 3.4 L Wake % (Auto) 5.1 Eos % (Auto) 0.0 Baso % (Auto) 0.5 Absolute Neuts (auto) 20.1 H Absolute Lymphs (auto) 0.77 L Total Counted Not Reportable Neutrophils % (Manual) Band Neutrophils % Lymphocytes % (Manual) Monocytes % (Manual) Metamyelocytes % Differential Comment SCANNED Diff Path Review May foll Toxic Granulation 3+ Platelet Estimate RBC Morphology PT INR D-Dimer Quant (PE/DVT) Sodium 146 H Potassium 3.8 Chloride 112 H Carbon Dioxide 22.0 Anion Gap 12 BUN 41 H Creatinine 1.60 H Estim Creat Clear Calc 53.23 Est GFR (MDRD) Af Amer 58 L Est GFR (MDRD) Non-Af 48 L BUN/Creatinine Ratio 25.6 H Glucose 169 H Hemoglobin A1c Lactic Acid Calcium 7.9 L Phosphorus Magnesium Total Bilirubin 2.70 H AST 73 H ALT 47 Alkaline Phosphatase 158 H Total Creatine Kinase Troponin I Total Protein 6.3 L Albumin 1.7 L Globulin 4.6 H Albumin/Globulin Ratio 0.4 L Lipase Urine Color Urine Clarity Urine pH Ur Specific [place] Urine Protein Urine Glucose (UA) Urine Ketones Urine Occult Blood Urine Nitrite Urine Bilirubin Urine Urobilinogen Ur Leukocyte Esterase Urine RBC Urine WBC Ur Squamous Epith Cells Urine Bacteria Urine Mucus Urine Opiates Screen Urine Methadone Screen Ur Barbiturates Screen Ur Phencyclidine Scrn Ur Amphetamines Screen U Methamphetamin-MDMA U Benzodiazepines Scrn Urine Cocaine Screen U Cannabinoids Screen Ur Drug Screen Comment MRSA (PCR) POC Glucose 04/27/18 04/26/18 04/26/18 01:18 18:55 14:28 POC Glucose 160 H 133 H 149 H Clinical Impression(s) from Imaging Studies Abdomen/Pelvis CT 04/26/18 07:23 IMPRESSION: Curvilinear bands of low attenuation within the spleen along the periphery. Splenic injury cannot be excluded. No subcapsular collection. Nonspecific mesenteric thickening adjacent to the mid ascending colon. Duplicated IVC. Electronically Signed: Hernando Jarvis DO at 9:56 EST Tel [phone], Service support , Chest X-Ray 04/26/18 07:23 IMPRESSION: Bibasilar atelectasis. Cardiomegaly. Electronically Signed: Hernando Jarvis DO at 8:22 EST Tel [phone], Service support , Chest CTA 04/26/18 08:21 IMPRESSION: No demonstrated pulmonary embolism or arterial dissection. Basilar atelectasis. Electronically Signed: Hernando Jarvis DO at 10:09 EST Tel [phone], Service support , Assessment/Plan Active and Suspected Problems Acute endocarditis (Acute) RECOMMENDATIONS: 1. Continue current supportive measures with antibiotics and supplemental IV fluid hydration. 2. Patient to remain n.p.o. for now. 3. Transition from normal saline to D5W given rising sodium and chloride levels. 4. Obtain L-spine MRI. 5. Infectious diseases consultation is pending. 6. Okay to discontinue vancomycin from my perspective. IMPRESSIONS: 1. Severe sepsis secondary to MSSA bacteremia and mitral valve endocarditis The patient does have evidence of MSSA bacteremia and what appears to be mitral valve endocarditis on a surface echocardiogram. Urine culture is currently pending. However, given the patient's complaints of low back pain, will obtain MRI L-spine to evaluate for the presence of an infectious source. The patient will be continued on broad-spectrum antibiotics for now. Continue supplemental IV fluid hydration, given n.p.o. status. Infectious diseases consultation is currently pending. 2. Acute kidney injury/hypernatremia/hyperchloremia Initially felt to be secondary to prerenal causes. However, the patient has since developed hypernatremic hyperchloremia, for which his supplemental IV fluids will be transition to D5W. Continue to monitor urine output. No indication for renal replacement therapy at this time. 3. Non-ST elevation [facility] is following. Likely secondary to demand ischemia in the setting of #1. Continue current supportive measures. 4. Intractable nausea and vomiting Continue antiemetics as ordered. This note was generated with [employer] dictation software. It may contain incorrect words, spelling, and punctuation that were not noted in checking the note before signing. Code Visit Inpatient E&M: 81776 Init Hosp L3
--- NOTE | 2018-04-27 07:57 | MRI_ITS ---
STUDY: MRI LUMBAR SPINE WITHOUT CONTRAST REASON FOR EXAM: Male, 58 years old. Sudden onset low back pain, abnormal blood culture, evaluate for abscess TECHNIQUE: Standardized fat and water weighted pulse sequences were obtained in the sagittal and axial planes. COMPARISON: None FINDINGS: T12-L1: Normal endplates. Normal disc height, hydration and morphology. Normal bilateral facet joints. Normal central canal and bilateral lateral recesses. Normal bilateral intervertebral neural foramina. Normal lumbar lordosis. There is no substantial scoliosis. Normal conus medullaris that terminates at the L1 level. The osseous structures are diffusely and abnormally T1 and T2 hypointense. Correlate clinically for bone marrow disorder such as anemia or myelofibrosis. An incompletely imaged series of fluid collections is noted in the right lower posterior paraspinal musculature extending from the L5 level to the S2 level. In total, these measure up to 7 x 1.8 cm on sagittal STIR image 11. Extensive edema is present throughout the lower posterior bilateral paraspinal musculature, extending upwards on the right. Overall, findings are concerning for muscular abscesses and associated myositis. Consider postcontrast images to characterize further. L1-2: Bulging annulus and bilateral facet hypertrophy without compressive sequelae. L2-3: Bulging annulus and bilateral facet hypertrophy without compressive sequelae. L3-4: Bulging annulus and bilateral facet hypertrophy with mild central canal and bilateral foraminal stenoses. L4-5: Normal endplates. Normal disc height, hydration and morphology. Normal bilateral facet joints. Normal central canal and bilateral lateral recesses. Normal bilateral intervertebral neural foramina. L5-S1: Normal disc. Bilateral facet hypertrophy. No epidural abscess is grossly visible on this noncontrast study. Normal visualized sacral ala. Normal visualized paraspinous soft tissue structures. Double inferior vena cava is noted. MRI/Spine Lumbar (Routine) IMPRESSION: A series of incompletely imaged fluid signal lesions are noted in the right posterior paraspinal musculature at the L5-S2 levels. This could represent multiple abscesses. Additionally, abnormal signal is present extensively throughout the posterior paraspinal musculature which could be related to myositis. Consider postcontrast images to characterize further. No epidural abscess is grossly visible on this noncontrast study. Abnormal osseous signal. Correlate clinically for bone marrow disorder such as anemia or myelofibrosis. Electronically Signed: Reid Dan MD at 13:05 EST Tel , Service support ,
[2018-04-27] MEDS: Vancomycin IV 1,000 MG/200 ML BAG 200 MG IV (09:11)
--- NOTE | 2018-04-27 09:26 | CASEMGMT ---
RN CM Assessment: Intro role of CM to post ICU rounds. Pt presented to ER with nausea, vomiting in context of taking [place] and Valium for sciatica. DANIEL, hyponatremia, lactic acidosis and hyperglycemia. Developed HR 140's, Lactate 3.7. Troponin peak 1.920-NSTEMI. ID consult. PCP: Dr. Santos Chamorro Pharmacy: [facility] in [place] Prescription coverage: yes Living arrangements: Two story home. states pt has been sleeping downstairs. DME: crutches when sciatica is painful Transporation: drives, but also can drive states pt has been very painful from sciatica. Pt will want to return home if possible. RN CM let know we will follow for PT/OT and assist with any dc needs that arise. DC PLAN: undetermined
--- NOTE | 2018-04-27 11:52 | DCINST_ITS ---
- Discharge Diagnoses Current Active Problems: Current Active and Chronic Problems Elevated LFTs (Acute) Hyperglycemia (Acute) Acute kidney injury (Acute) Intractable nausea and vomiting (Acute) Allergies/Adverse Reactions: Allergies No Known Allergies Allergy (Verified 04/26/18 07:09) Medications to take at Discharge Diazepam 2 mg PO QHS 04/26/18 Hydrocodone/Acetaminophen [Hydrocodone-Acetamin 5-325 mg] 1 - 2 tab PO Q6H PRN PRN 04/26/18 Prednisone 1 tab PO BID 04/26/18 Primary Care Physician: Chas Chamorro MD [Primary Care Provider] - Test Results: Test results from this visit will be discussed in further detail at your follow- up appointment, if applicable. Proposed Discharge Date: 04/27/18
--- NOTE | 2018-04-27 13:08 | PCM.DC.SUM ---
Discharge Date and Diagnosis - Problem List Patient Problems: Active and Suspected Problems Acute endocarditis (Acute) Elevated LFTs (Acute) Hyperglycemia (Acute) Acute kidney injury (Acute) Intractable nausea and vomiting (Acute) Date of Admission: 04/26/18 Date of Discharge: 04/27/18 - Primary Discharge Diagnosis Active and Suspected Problems Acute endocarditis (Acute) Elevated LFTs (Acute) Hyperglycemia (Acute) Acute kidney injury (Acute) Intractable nausea and vomiting (Acute) Hospital Course and Treatment Imaging Results: 04/27/18 07:57 MRI Spine [Spine Lumbar (Routine)] [MRI] Urgent Summary of Care Provided: The patient is a 58 year old M who presented with intractable nausea vomiting associated with hiccups. An assessment of severe sepsis made patient admitted to regular nursing floor later transferred to intensive care unit. 1. 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 This diagnosis was found a day after patient's admission. Of note patient had been started on broad-spectrum antibiotics on admission while his evaluation was pending. Did place a call to [facility] once we found that the diagnosis was accepted to for transfer 2. Acute kidney injury secondary to acute tubular necrosis from patient's severe sepsis 3. Hyperglycemia without previous history of diabetes 4. Elevated troponin secondary to non-STEMI type II as a result of demand ischemia Patient Problems: Active and Suspected Problems Acute endocarditis (Acute) Elevated LFTs (Acute) Hyperglycemia (Acute) Acute kidney injury (Acute) Intractable nausea and vomiting (Acute) - Physical Exam General: Lethargic HEENT: Atraumatic Oral: Dry Mucosa Neck: Supple Lungs: Diminished Cardiovascular: Tachycardic Vital Signs Temp Pulse Resp BP Pulse Ox 101.6 F H 138 H 37 H 93/73 94 04/27/18 12:30 04/27/18 12:30 04/27/18 12:30 04/27/18 12:30 04/27/18 12:30 Oxygen Flow Rate (L/min) 4 Oxygen Delivery Method Nasal Cannula Weight: 77.9 kg Body Mass Index (BMI) 25.1 Intake and Output for Last 24 Hours 04/26/18 04/26/18 04/27/18 00:59 23:59 23:59 Intake Total 1645 / 1645 Output Total 1250 / 1250 Balance 395 / 395 Microbiology Past 72 Hours 04/26/18 20:20 Respiratory Culture - Preliminary Sputum, Expectorated/Coughed 04/26/18 16:30 Urine Culture - Preliminary Urine, Catheterized Staphylococcus aureus 04/26/18 16:36 Bacteria Detection (PCR) - Final Blood Culture (Wb) - Anticubital Left Staphylococcus aureus Blood Culture - Preliminary 04/26/18 20:10 Respiratory Panel (PCR) - Final Mucosa - Nose Laboratory Tests Past 24 Hrs 04/26/18 04/26/18 04/26/18 07:15 07:15 12:30 WBC RBC Hgb Hct MCV MCH MCHC RDW RDW Differential Plt Count MPV Immature Gran % (Auto) Neut % (Auto) Lymph % (Auto) [place] % (Auto) Eos % (Auto) Baso % (Auto) Absolute Neuts (auto) Absolute Lymphs (auto) Total Counted Differential Comment Diff Path Review Toxic Granulation PT INR Sodium Potassium Chloride Carbon Dioxide Anion Gap BUN Creatinine Estim Creat Clear Calc Est GFR (MDRD) Af Amer Est GFR (MDRD) Non-Af BUN/Creatinine Ratio Glucose Hemoglobin A1c 5.6 Calcium Total Bilirubin AST ALT Alkaline Phosphatase Total Creatine Kinase 314 H Troponin I Total Protein Albumin Globulin Albumin/Globulin Ratio Urine Color Yellow Urine Clarity Sl. Cloudy Urine pH 6.0 Ur Specific [place] 1.005 Urine Protein 100 H Urine Glucose (UA) Normal Urine Ketones Negative Urine Occult Blood 250 H Urine Nitrite Negative Urine Bilirubin Negative Urine Urobilinogen 1 H Ur Leukocyte Esterase 25 H Urine RBC 0-5 SEEN Urine WBC 0 SEEN Ur Squamous Epith Cells 0-5 SEEN Urine Bacteria 1+ Urine Mucus 0 SEEN Urine Opiates Screen Urine Methadone Screen Ur Barbiturates Screen Ur Phencyclidine Scrn Ur Amphetamines Screen U Methamphetamin-MDMA U Benzodiazepines Scrn Urine Cocaine Screen U Cannabinoids Screen Ur Drug Screen Comment MRSA (PCR) 04/26/18 04/26/18 04/26/18 14:42 16:30 16:45 WBC RBC Hgb Hct MCV MCH MCHC RDW RDW Differential Plt Count MPV Immature Gran % (Auto) Neut % (Auto) Lymph % (Auto) [place] % (Auto) Eos % (Auto) Baso % (Auto) Absolute Neuts (auto) Absolute Lymphs (auto) Total Counted Differential Comment Diff Path Review Toxic Granulation PT 15.6 H INR 1.2 Sodium Potassium Chloride Carbon Dioxide Anion Gap BUN Creatinine Estim Creat Clear Calc Est GFR (MDRD) Af Amer Est GFR (MDRD) Non-Af BUN/Creatinine Ratio Glucose Hemoglobin A1c Calcium Total Bilirubin AST ALT Alkaline Phosphatase Total Creatine Kinase Troponin I 1.680 H* Total Protein Albumin Globulin Albumin/Globulin Ratio Urine Color Urine Clarity Urine pH Ur Specific [place] Urine Protein Urine Glucose (UA) Urine Ketones Urine Occult Blood Urine Nitrite Urine Bilirubin Urine Urobilinogen Ur Leukocyte Esterase Urine RBC Urine WBC Ur Squamous Epith Cells Urine Bacteria Urine Mucus Urine Opiates Screen POSITIVE H Urine Methadone Screen NEGATIVE Ur Barbiturates Screen NEGATIVE Ur Phencyclidine Scrn NEGATIVE Ur Amphetamines Screen NEGATIVE U Methamphetamin-MDMA NEGATIVE U Benzodiazepines Scrn NEGATIVE Urine Cocaine Screen NEGATIVE U Cannabinoids Screen NEGATIVE Ur Drug Screen Comment MRSA (PCR) 04/26/18 04/26/18 04/26/18 18:06 22:15 23:10 WBC RBC Hgb Hct MCV MCH MCHC RDW RDW Differential Plt Count MPV Immature Gran % (Auto) Neut % (Auto) Lymph % (Auto) [place] % (Auto) Eos % (Auto) Baso % (Auto) Absolute Neuts (auto) Absolute Lymphs (auto) Total Counted Differential Comment Diff Path Review Toxic Granulation PT INR Sodium Potassium Chloride Carbon Dioxide Anion Gap BUN Creatinine Estim Creat Clear Calc Est GFR (MDRD) Af Amer Est GFR (MDRD) Non-Af BUN/Creatinine Ratio Glucose Hemoglobin A1c Calcium Total Bilirubin AST ALT Alkaline Phosphatase Total Creatine Kinase Troponin I 1.580 H* 1.920 H* Total Protein Albumin Globulin Albumin/Globulin Ratio Urine Color Urine Clarity Urine pH Ur Specific [place] Urine Protein Urine Glucose (UA) Urine Ketones Urine Occult Blood Urine Nitrite Urine Bilirubin Urine Urobilinogen Ur Leukocyte Esterase Urine RBC Urine WBC Ur Squamous Epith Cells Urine Bacteria Urine Mucus Urine Opiates Screen Urine Methadone Screen Ur Barbiturates Screen Ur Phencyclidine Scrn Ur Amphetamines Screen U Methamphetamin-MDMA U Benzodiazepines Scrn Urine Cocaine Screen U Cannabinoids Screen Ur Drug Screen Comment MRSA (PCR) Negative 04/27/18 04/27/18 04:10 04:10 WBC 22.7 H RBC 4.63 Hgb 15.0 Hct 43.3 MCV 93.5 MCH 32.4 H MCHC 34.6 RDW 13.8 RDW Differential 45.8 H Plt Count 120 L MPV 11.5 Immature Gran % (Auto) 2.700 H Neut % (Auto) 88.3 H Lymph % (Auto) 3.4 L [place] % (Auto) 5.1 Eos % (Auto) 0.0 Baso % (Auto) 0.5 Absolute Neuts (auto) 20.1 H Absolute Lymphs (auto) 0.77 L Total Counted Not Reportable Differential Comment SCANNED Diff Path Review May foll Toxic Granulation 3+ PT INR Sodium 146 H Potassium 3.8 Chloride 112 H Carbon Dioxide 22.0 Anion Gap 12 BUN 41 H Creatinine 1.60 H Estim Creat Clear Calc 53.23 Est GFR (MDRD) Af Amer 58 L Est GFR (MDRD) Non-Af 48 L BUN/Creatinine Ratio 25.6 H Glucose 169 H Hemoglobin A1c Calcium 7.9 L Total Bilirubin 2.70 H AST 73 H ALT 47 Alkaline Phosphatase 158 H Total Creatine Kinase Troponin I Total Protein 6.3 L Albumin 1.7 L Globulin 4.6 H Albumin/Globulin Ratio 0.4 L Urine Color Urine Clarity Urine pH Ur Specific [place] Urine Protein Urine Glucose (UA) Urine Ketones Urine Occult Blood Urine Nitrite Urine Bilirubin Urine Urobilinogen Ur Leukocyte Esterase Urine RBC Urine WBC Ur Squamous Epith Cells Urine Bacteria Urine Mucus Urine Opiates Screen Urine Methadone Screen Ur Barbiturates Screen Ur Phencyclidine Scrn Ur Amphetamines Screen U Methamphetamin-MDMA U Benzodiazepines Scrn Urine Cocaine Screen U Cannabinoids Screen Ur Drug Screen Comment MRSA (PCR) POC Glucose 04/27/18 04/26/18 04/26/18 01:18 18:55 14:28 POC Glucose 160 H 133 H 149 H Discharge Diet: No Restrictions Home Medications: Medications to take at Discharge Diazepam 2 mg PO QHS 04/26/18 Hydrocodone/Acetaminophen [Hydrocodone-Acetamin 5-325 mg] 1 - 2 tab PO Q6H PRN PRN 04/26/18 Prednisone 1 tab PO BID 04/26/18 Primary Care Physician: Chas Chamorro MD [Primary Care Provider] - Disposition: Acute care Hospital Minutes spent on discharge:: 45 Patient Condition:: Stable Medical Necessity - Tobacco Use Smoking Status: Never smoker Meaningful Use Info Meaningful Use Diagnoses (Choose all that apply): None applicable Code Visit Inpatient E&M: 88837 Disch Hosp
[2018-04-27 13:16] LABS: Bedside Glucose 164 mg/dL (70-110)
[2018-04-27 15:35] LABS: Pathologist Review Reviewed
--- NOTE | 2018-04-27 15:45 | NURSING ---
pt transferring to [facility] per [facility].
[2018-04-28 10:37] LABS: Pathologist Review Reviewed
== END 2018-04-27 15:45 | disposition short-term general hospital (02) | DRG 871 ==
LOC: ED 07:34 → MS3 12:23 → ICU 04-27 07:18 → MS3 04-28 07:29
PROVIDERS: Internal Medicine Critical Care Medicine; Admitting Provider Hospitalist; Emergency Provider Emergency Medicine; Family Provider Family Medicine; PCP Family Medicine; Visit Provider Internal Medicine
DX: A41.01 Sepsis due to Methicillin susceptible Staphylococcus aureus (principal); I21.A1 Myocardial infarction type 2; I33.9 Acute and subacute endocarditis, unspecified; I33.0 Acute and subacute infective endocarditis; N17.0 Acute kidney failure with tubular necrosis; E87.1 Hypo-osmolality and hyponatremia; E87.0 Hyperosmolality and hypernatremia; R65.20 Severe sepsis without septic shock; R06.6 Hiccough; M54.32 Sciatica, left side; R11.2 Nausea with vomiting, unspecified; R79.89 Other specified abnormal findings of blood chemistry; R73.9 Hyperglycemia, unspecified; B95.61 Methicillin susceptible Staphylococcus aureus infection as the cause of diseases classified elsewhere
CPT/HCPCS: 36415; 71045; 71275; 72148; 74177; 76705; 80053; 80307; 81001; 82550; 82962; 83036; 83605; 83690; 83735; 84100; 84484; 85025; 85379; 85610; 87040; 87070; 87077; 87086; 87088; 87149; 87186; 87205; 87633; 87641; 93005; 93306; 99282; J7030; J7040; J7050; Q9967; A4216; J2405